=== PATIENT | female | born 1970 | race Caucasian/White ===

== ENCOUNTER 2017-03-17 00:39 | Inpatient (IN) | payer MEDICAID ==
[~2017-03-17] VITALS: Ht 154.9 cm; Wt 59.0 kg
[~2017-03-17 00:39] MED LIST: CEPH500C5 PO; CHLO25CA10 PO; FERR324T PO; FLUO20CA22 PO; FOLI1TAB16 PO; METR500T4 PO; OMEP40CA37 PO; ONDA8TAB9 PO; THI100T PO; TRAM50TA2 PO
[2017-03-17] MEDS ORDERED: piperacillin/tazo 3.375gm/50ml 50 ML IV ONE (01:25)
[2017-03-17] MEDS ORDERED: vancomycin/NS 1 GM ADD-VANTAGE 250 ML IV ONE (01:25)
[2017-03-17] MEDS ORDERED: normal saline 1000ML IV soln IV ONE (01:25)
[2017-03-17 02:03] LABS: BASOPHILS % (AUTO) 0.3 % (0-1); EOSINOPHILS # (AUTO) 0.1 X10'3 (0-0.9); EOSINOPHILS % (AUTO) 2.2 % (0-6); HEMATOCRIT 34.8 % (35.0-45.0); HEMOGLOBIN 11.1 g/dl (12.0-16.0); LYMPHOCYTES # (AUTO) 0.9 X10'3 (1.1-4.8); LYMPHOCYTES % (AUTO) 14.9 % (21-51); MEAN CORPUSCULAR VOLUME 81.3 FL (78-98); MEAN PLATELET VOLUME 5.6 FL (7.4-10.4); MONOCYTES # (AUTO) 0.1 X10'3 (0-0.9); MONOCYTES % (AUTO) 2.4 % (2-12); NEUTROPHILS # (AUTO) 4.8 X10'3 (1.8-7.7); NEUTROPHILS % (AUTO) 80.2 % (42-75); PLATELET COUNT 362 X10'3 (140-440); RED BLOOD COUNT 4.28 X10'6 (4.20-5.60); RED CELL DISTRIBUTION WIDTH 16.5 % (11.5-14.5)
[2017-03-17 02:06] LABS: PARTIAL THROMBOPLASTIN TIME 27 SECONDS (22-32)
[2017-03-17] MEDS ORDERED: NO HOME MEDS (02:10)
[2017-03-17 02:13] LABS: ALBUMIN 3.7 G/DL (3.4-5.0); ANION GAP 10 (8-16); BLOOD UREA NITROGEN 9 MG/DL (7-18); CALCIUM 9.1 MG/DL (8.5-10.1); CHLORIDE 99 MMOL/L (99-107); GLUCOSE 81 MG/DL (70-104); MAGNESIUM 2.2 MG/DL (1.5-2.4); POTASSIUM 3.6 MMOL/L (3.5-5.1); SODIUM 134 MMOL/L (135-145); TOTAL CARBON DIOXIDE 24.6 MMOL/L (24-32); eGFR 68 ML/MIN
[2017-03-17 02:27] LABS: ALANINE AMINOTRANSFERASE 21 U/L (12-78); ALBUMIN/GLOBULIN RATIO 0.6 (1.1-1.5); ALKALINE PHOSPHATASE 96 IU/L (46-116); ASPARTATE AMINO TRANSFERASE 24 U/L (10-37); BILIRUBIN,TOTAL 0.4 MG/DL (0.1-1.0); TOTAL PROTEIN 9.7 G/DL (6.4-8.2)
[2017-03-17] MEDS ORDERED: acetaminophen 325mg tablet PO ONE (02:35)
[2017-03-17] MEDS ORDERED: acetaminophen 325mg tablet PO PRN (03:15)
[2017-03-17] MEDS ORDERED: magnesium hydroxide 30ml (MOM) UD suspension PO PRN (03:15)
[2017-03-17] MEDS ORDERED: mag hydrox/Alum hydrox/simeth 30ml oral suspension PO PRN (03:15)
[2017-03-17] MEDS: HYDROcodone/acetaminophen 10/325mg tab PO PRN ×3 (03:49→13:41)
[2017-03-17 05:28] VITALS: BP 112/61
[2017-03-17 06:06] LABS: URINE HCG NEGATIVE (NEG)
[2017-03-17 06:12] LABS: CLARITY,URINE Clear (Clear); COLOR,URINE Yellow (Yellow); GLUCOSE, URINE 250 mg/dl (Neg); KETONES,URINE Negative (Neg); LEUKOCYTE ESTERASE ,URINE Negative (Neg); NITRITES, URINE Negative (Neg); OCCULT BLOOD,URINE Negative (Neg); PH,URINE 5.5 (4.8-8.0); PROTEIN,URINE Negative (Neg)
[2017-03-17 06:13] LABS: UA COLLECTION TYPE CLN CATCH MIDSTREAM
[2017-03-17] MEDS ORDERED: lactobacillus rhamnosus 10,000 MMU CELLS/CAPSULE PO SCH (07:30)
[2017-03-17] MEDS: piperacillin/tazo 3.375gm/50ml 50 ML IV SCH ×3 (08:00→23:29)
[2017-03-17] MEDS: heparin, porcine 5000 units/ml vial SQ SCH ×2 (08:01→20:47)
[2017-03-17] MEDS: LACTOBACILLUS RHAMNOSUS GG 15 billion unit sprinkle caps PO SCH (08:07)
[2017-03-17 11:00] VITALS: BP 101/49
[2017-03-17] MEDS: VANCOMYCIN 750MG IV in NS 250 ML IV SCH (13:40)
[2017-03-17] MEDS ORDERED: oxyCODONE/APAP 10/325mg tablet PO PRN (16:20)
[2017-03-17 18:00] VITALS: BP 107/51
[2017-03-17] MEDS: oxyCODONE/APAP 10/325mg tablet PO PRN ×2 (18:47→23:28)
[2017-03-17 22:00] VITALS: BP 99/58
[2017-03-18] MEDS: VANCOMYCIN 750MG IV in NS 250 ML IV SCH ×2 (02:10→13:28)
[2017-03-18] MEDS: ondansetron/PF 4mg/2ml inj IV PRN ×2 (04:25→11:23)
[2017-03-18 06:00] VITALS: BP 103/62
[2017-03-18 06:07] LABS: BASOPHILS % (AUTO) 0.3 % (0-1); EOSINOPHILS # (AUTO) 0.1 X10'3 (0-0.9); EOSINOPHILS % (AUTO) 2.9 % (0-6); HEMATOCRIT 25.5 % (35.0-45.0); LYMPHOCYTES # (AUTO) 0.7 X10'3 (1.1-4.8); LYMPHOCYTES % (AUTO) 17.4 % (21-51); MEAN CORPUSCULAR HEMOGLOBIN 25.8 PG (27.0-31.0); MEAN CORPUSCULAR HGB CONC 31.5 % (33.0-36.5); MEAN PLATELET VOLUME 5.7 FL (7.4-10.4); MONOCYTES # (AUTO) 0.3 X10'3 (0-0.9); MONOCYTES % (AUTO) 6.9 % (2-12); NEUTROPHILS % (AUTO) 72.5 % (42-75); PLATELET COUNT 242 X10'3 (140-440); RED BLOOD COUNT 3.11 X10'6 (4.20-5.60); RED CELL DISTRIBUTION WIDTH 16.2 % (11.5-14.5); WHITE BLOOD COUNT 4.1 X10'3 (4.5-11.0)
[2017-03-18 06:38] LABS: ALANINE AMINOTRANSFERASE 18 U/L (12-78); ALBUMIN 2.4 G/DL (3.4-5.0); ALBUMIN/GLOBULIN RATIO 0.6 (1.1-1.5); ALKALINE PHOSPHATASE 67 IU/L (46-116); ANION GAP 5 (8-16); ASPARTATE AMINO TRANSFERASE 21 U/L (10-37); BILIRUBIN,TOTAL 0.2 MG/DL (0.1-1.0); BLOOD UREA NITROGEN 9 MG/DL (7-18); C-REACTIVE PROTEIN 9.21 MG/DL (0.0-0.5); CALCIUM 7.9 MG/DL (8.5-10.1); CHLORIDE 107 MMOL/L (99-107); GLUCOSE 102 MG/DL (70-104); PHOSPHORUS 2.9 MG/DL (2.3-4.5); POTASSIUM 3.6 MMOL/L (3.5-5.1); SODIUM 139 MMOL/L (135-145); TOTAL CARBON DIOXIDE 26.8 MMOL/L (24-32); TOTAL PROTEIN 6.7 G/DL (6.4-8.2); eGFR > 90 ML/MIN
[2017-03-18] MEDS: piperacillin/tazo 3.375gm/50ml 50 ML IV SCH ×3 (09:03→23:49)
[2017-03-18] MEDS: heparin, porcine 5000 units/ml vial SQ SCH ×2 (09:04→20:22)
[2017-03-18] MEDS: oxyCODONE/APAP 10/325mg tablet PO PRN ×3 (09:39→23:51)
[2017-03-18 10:00] VITALS: BP 108/51
[2017-03-18] MEDS ORDERED: gadopentetate dimeglumine 7.5 MMOL/15 ML syringe ONE (11:34)
[2017-03-18 18:00] VITALS: BP 93/49
[2017-03-18 22:00] VITALS: BP 107/56
[2017-03-19] MEDS ORDERED: VANCOMYCIN LEVEL IV ONE (01:30)
[2017-03-19] MEDS: VANCOMYCIN 750MG IV in NS 250 ML IV SCH (02:16)
[2017-03-19 06:00] VITALS: BP 101/70
[2017-03-19] MEDS: LACTOBACILLUS RHAMNOSUS GG 15 billion unit sprinkle caps PO SCH (08:31)
[2017-03-19] MEDS: oxyCODONE/APAP 10/325mg tablet PO PRN (08:33)
[2017-03-19] MEDS: heparin, porcine 5000 units/ml vial SQ SCH (08:34)
[2017-03-19] MEDS: piperacillin/tazo 3.375gm/50ml 50 ML IV SCH (08:34)
[2017-03-19 09:56] LABS: BASOPHILS % (AUTO) 0.6 % (0-1); EOSINOPHILS # (AUTO) 0.1 X10'3 (0-0.9); EOSINOPHILS % (AUTO) 3.6 % (0-6); HEMATOCRIT 23.1 % (35.0-45.0); HEMOGLOBIN 7.8 g/dl (12.0-16.0); LYMPHOCYTES # (AUTO) 1.3 X10'3 (1.1-4.8); LYMPHOCYTES % (AUTO) 40.4 % (21-51); MEAN CORPUSCULAR HEMOGLOBIN 26.8 PG (27.0-31.0); MEAN CORPUSCULAR HGB CONC 33.7 % (33.0-36.5); MEAN CORPUSCULAR VOLUME 79.5 FL (78-98); MEAN PLATELET VOLUME 5.9 FL (7.4-10.4); MONOCYTES # (AUTO) 0.2 X10'3 (0-0.9); MONOCYTES % (AUTO) 6.5 % (2-12); NEUTROPHILS # (AUTO) 1.6 X10'3 (1.8-7.7); NEUTROPHILS % (AUTO) 48.9 % (42-75); PLATELET COUNT 294 X10'3 (140-440); RED BLOOD COUNT 2.91 X10'6 (4.20-5.60); RED CELL DISTRIBUTION WIDTH 15.3 % (11.5-14.5); WHITE BLOOD COUNT 3.2 X10'3 (4.5-11.0)
[2017-03-19 10:00] VITALS: BP 85/55
[2017-03-19] MEDS ORDERED: CLIN-5 PO (10:27)
[2017-03-19] MEDS ORDERED: TRAM50TA2 PO (10:27)
[2017-03-19] MEDS ORDERED: OMEP20CA10 PO (10:27)
[2017-03-19] MEDS ORDERED: FERR324T4 PO (11:18)
[2017-03-19] MEDS ORDERED: vancomycin/NS 1 GM ADD-VANTAGE 250 ML IV SCH (14:00)
[2017-03-21] MEDS ORDERED: VANCOMYCIN LEVEL IV ONE (01:30)
== END 2017-03-19 12:30 | disposition home or self-care (01) | DRG 383 ==
LOC: ER 00:40 → ED HOLD 03:14 → ORTHO 4S 05:20
PROVIDERS: ADMIT Internal Medicine; ATTEND Internal Medicine
DX: L03.114 Cellulitis of left upper limb (principal); K86.1 Other chronic pancreatitis; F19.10 Other psychoactive substance abuse, uncomplicated; Z60.2 Problems related to living alone; D64.9 Anemia, unspecified; Z79.899 Other long term (current) drug therapy; Z79.01 Long term (current) use of anticoagulants; Z79.82 Long term (current) use of aspirin; Z88.2 Allergy status to sulfonamides; Z88.6 Allergy status to analgesic agent; Z86.14 Personal history of Methicillin resistant Staphylococcus aureus infection; Z90.710 Acquired absence of both cervix and uterus; Z98.84 Bariatric surgery status; Z90.49 Acquired absence of other specified parts of digestive tract; Z98.891 History of uterine scar from previous surgery; Z56.0 Unemployment, unspecified
CPT/HCPCS: 36415; 71045; 73220; 80053; 80202; 81003; 81025; 83605; 83735; 84100; 84145; 84443; 85025; 85610; 85651; 85730; 86140; 87040; 87070; 93005; 96365; 96368; 99285; A9579; J1644; J2405; J2543; J3370; J7030

== ENCOUNTER 2017-04-16 00:15 | Emergency (ER) | payer MEDICAID ==
[~2017-04-16] VITALS: Ht 154.9 cm; Wt 60.6 kg
[~2017-04-16 00:15] MED LIST changes: -CEPH500C5 PO; -CHLO25CA10 PO; +CLIN-5 PO; -FERR324T PO; +FERR324T4 PO; -FLUO20CA22 PO; -FOLI1TAB16 PO; -METR500T4 PO; +OMEP20CA10 PO; -OMEP40CA37 PO; -ONDA8TAB9 PO; -THI100T PO
[2017-04-16] MEDS ORDERED: DOXY100C43 PO (00:28)
[2017-04-16] MEDS ORDERED: LIDOcaine 1.5% w/epinephrine 1:200,000 5ml ampul IJ ONE (00:30)
[2017-04-16 01:14] VITALS: BP 158/92
== END 2017-04-16 01:14 | disposition home or self-care (01) ==
LOC: ER 00:15
DX: R22.31 Localized swelling, mass and lump, right upper limb (principal); Z86.14 Personal history of Methicillin resistant Staphylococcus aureus infection; Z90.49 Acquired absence of other specified parts of digestive tract; Z90.710 Acquired absence of both cervix and uterus; F15.10 Other stimulant abuse, uncomplicated; Z88.6 Allergy status to analgesic agent; Z88.2 Allergy status to sulfonamides; Z79.899 Other long term (current) drug therapy; Z56.0 Unemployment, unspecified; Z60.2 Problems related to living alone
CPT/HCPCS: 10060; 99283; A6449; J3490

== ENCOUNTER 2017-05-25 10:41 | Emergency (ER) | payer MEDICAID ==
[~2017-05-25] VITALS: Ht 154.9 cm; Wt 60.0 kg
[~2017-05-25 10:41] MED LIST changes: -TRAM50TA2 PO
[2017-05-25 11:02] VITALS: BP 143/89
[2017-05-25] MEDS ORDERED: HYDR-565 PO (12:05)
[2017-05-25] MEDS ORDERED: DOXY100C43 PO (12:05)
== END 2017-05-25 12:21 | disposition home or self-care (01) ==
LOC: ER 10:41
DX: L02.01 Cutaneous abscess of face (principal); L02.512 Cutaneous abscess of left hand; Z90.710 Acquired absence of both cervix and uterus; Z90.49 Acquired absence of other specified parts of digestive tract; Z88.6 Allergy status to analgesic agent; Z88.2 Allergy status to sulfonamides; Z98.84 Bariatric surgery status; F15.10 Other stimulant abuse, uncomplicated; Z56.0 Unemployment, unspecified; Z60.2 Problems related to living alone; Z79.899 Other long term (current) drug therapy
CPT/HCPCS: 99283

== ENCOUNTER 2017-07-03 01:41 | Emergency (ER) | payer MEDICAID ==
[~2017-07-03] VITALS: Ht 154.9 cm; Wt 61.3 kg
[2017-07-03] MEDS ORDERED: cephalexin 500mg capsule PO ONE (02:15)
[2017-07-03] MEDS ORDERED: doxycycline hyclate 100mg tablet.DR PO ONE (02:15)
[2017-07-03] MEDS ORDERED: CEPH500C5 PO (02:21)
[2017-07-03] MEDS ORDERED: DOXY100C43 PO (02:21)
[2017-07-03 02:31] VITALS: BP 125/84
== END 2017-07-03 02:34 | disposition home or self-care (01) ==
LOC: ER 01:42
DX: L03.113 Cellulitis of right upper limb (principal); F15.10 Other stimulant abuse, uncomplicated; Z86.14 Personal history of Methicillin resistant Staphylococcus aureus infection; Z90.49 Acquired absence of other specified parts of digestive tract; Z90.710 Acquired absence of both cervix and uterus; Z88.6 Allergy status to analgesic agent; Z88.2 Allergy status to sulfonamides; Z79.899 Other long term (current) drug therapy; Z56.0 Unemployment, unspecified; Z60.2 Problems related to living alone
CPT/HCPCS: 99283

== ENCOUNTER 2017-07-03 23:49 | Inpatient (IN) | payer MEDICAID ==
[~2017-07-03] VITALS: Ht 154.9 cm; Wt 66.5 kg
[~2017-07-03 23:49] MED LIST changes: +CEPH500C5 PO; +DOXY100C43 PO
[2017-07-04] VITALS (24 sets, daily range): BP systolic 101–129; BP diastolic 52–78
[2017-07-04] MEDS ORDERED: normal saline 1000ML IV soln IV ONE (00:20)
[2017-07-04] MEDS ORDERED: CefTRIAXone 2gm/D5W 50ml 50 ML IV ONE (00:20)
[2017-07-04] MEDS ORDERED: vancomycin/NS 1 GM ADD-VANTAGE 250 ML IV ONE (00:20)
[2017-07-04 00:51] LABS: BASOPHILS % (AUTO) 0.1 % (0-1); EOSINOPHILS # (AUTO) 0.2 X10'3 (0-0.9); EOSINOPHILS % (AUTO) 2.5 % (0-6); HEMATOCRIT 23.2 % (35.0-45.0); HEMOGLOBIN 7.2 g/dl (12.0-16.0); LYMPHOCYTES # (AUTO) 0.8 X10'3 (1.1-4.8); MEAN CORPUSCULAR HEMOGLOBIN 21.6 PG (27.0-31.0); MEAN CORPUSCULAR HGB CONC 30.8 % (33.0-36.5); MEAN CORPUSCULAR VOLUME 70.3 FL (78-98); MEAN PLATELET VOLUME 5.8 FL (7.4-10.4); MONOCYTES # (AUTO) 0.4 X10'3 (0-0.9); MONOCYTES % (AUTO) 5.9 % (2-12); NEUTROPHILS # (AUTO) 5.3 X10'3 (1.8-7.7); NEUTROPHILS % (AUTO) 79.5 % (42-75); PLATELET COUNT 397 X10'3 (140-440); RED BLOOD COUNT 3.31 X10'6 (4.20-5.60); RED CELL DISTRIBUTION WIDTH 17.8 % (11.5-14.5); WHITE BLOOD COUNT 6.6 X10'3 (4.5-11.0)
[2017-07-04 01:05] LABS: PARTIAL THROMBOPLASTIN TIME 25 SECONDS (22-32); PROTHROMBIN TIME 10.2 SECONDS (9.0-12.0)
[2017-07-04 01:09] LABS: ALANINE AMINOTRANSFERASE 17 U/L (12-78); ALBUMIN 3.1 G/DL (3.4-5.0); ALBUMIN/GLOBULIN RATIO 0.7 (1.1-1.5); ALKALINE PHOSPHATASE 85 IU/L (46-116); ANION GAP 11 (8-16); ASPARTATE AMINO TRANSFERASE 20 U/L (10-37); BILIRUBIN,TOTAL 0.2 MG/DL (0.1-1.0); BLOOD UREA NITROGEN 13 MG/DL (7-18); BUN/CREATININE RATIO 12.9 (6.6-38.0); CALCIUM 8.4 MG/DL (8.5-10.1); CHLORIDE 102 MMOL/L (99-107); CREATININE 1.01 MG/DL (0.40-0.90); GLUCOSE 116 MG/DL (70-104); MAGNESIUM 1.9 MG/DL (1.5-2.4); POTASSIUM 3.6 MMOL/L (3.5-5.1); SODIUM 134 MMOL/L (135-145); TOTAL CARBON DIOXIDE 21.5 MMOL/L (24-32); TOTAL PROTEIN 7.6 G/DL (6.4-8.2); eGFR 59 ML/MIN
[2017-07-04] MEDS ORDERED: ketorolac trometh. 30mg/ml inj. IV ONE (01:20)
[2017-07-04] MEDS ORDERED: diphenhydrAMINE 25mg capsule PO PRN (02:50)
[2017-07-04] MEDS ORDERED: morphine 4 MG/ML inj SYRINge IV PRN ×4 (02:50→14:55)
[2017-07-04] MEDS ORDERED: acetaminophen 325mg tablet PO PRN ×2 (02:50)
[2017-07-04] MEDS ORDERED: HYDROcodone/acetaminophen 5mg/325mg tablet PO PRN (02:50)
[2017-07-04] MEDS ORDERED: magnesium hydroxide 30ml (MOM) UD suspension PO PRN (02:50)
[2017-07-04] MEDS ORDERED: HYDROmorphone inj. 0.5 MG/0.5 ML DISP.SYRIN IV PRN ×2 (02:50)
[2017-07-04] MEDS ORDERED: metoclopramide 5 mg/ml inj IV PRN (02:50)
[2017-07-04] MEDS ORDERED: mag hydrox/Alum hydrox/simeth 30ml oral suspension PO PRN (02:50)
[2017-07-04] MEDS ORDERED: ondansetron/PF 4mg/2ml inj IV PRN ×2 (02:50→14:55)
[2017-07-04] MEDS ORDERED: bisacodyl 10mg suppository rectal RC PRN (02:50)
[2017-07-04 03:35] LABS: PHOSPHORUS 2.7 MG/DL (2.3-4.5)
[2017-07-04 03:37] LABS: URINE HCG NEGATIVE (NEG)
[2017-07-04 03:44] LABS: CLARITY,URINE CLEAR (Clear); COLOR,URINE YELLOW (Yellow); GLUCOSE, URINE NEGATIVE (Neg); KETONES,URINE NEGATIVE (Neg); LEUKOCYTE ESTERASE ,URINE NEGATIVE (Neg); NITRITES, URINE NEGATIVE (Neg); OCCULT BLOOD,URINE NEGATIVE (Neg); PH,URINE 5.5 (4.8-8.0); PROTEIN,URINE NEGATIVE (Neg); UROBILINOGEN,URINE 0.2 E.U/dL (0.2-1.0)
[2017-07-04] MEDS: normal saline 1000ml 1,000 ML IV SCH ×2 (03:44→04:59)
[2017-07-04] MEDS: piperacillin/tazo 4.5gm/100ml 100 ML IV SCH ×2 (03:44→08:03)
[2017-07-04 03:49] LABS: UA COLLECTION TYPE CLN CATCH MIDSTREAM; URINE AMPHETAMINE SCREEN POSITIVE (Neg); URINE BARBITUATE SCREEN NEGATIVE (Neg); URINE BENZODIAZEPINES SCREEN NEGATIVE (Neg); URINE CANNABINOID SCREEN NEGATIVE (Neg); URINE COCAINE SCREEN NEGATIVE (Neg); URINE METHADONE SCREEN NEGATIVE (Neg); URINE OPIATE SCREEN NEGATIVE (Neg); URINE PHENCYCLIDINE SCREEN NEGATIVE (Neg)
[2017-07-04] MEDS ORDERED: diphenhydrAMINE 25mg capsule PO ONE (06:05)
[2017-07-04] MEDS ORDERED: acetaminophen 325mg tablet PO ONE (06:05)
[2017-07-04] MEDS ORDERED: dexamethasone inj 10 MG in normal saline 100ml IV soln 100 ML IV ONE (06:05)
[2017-07-04] MEDS ORDERED: diphenhydrAMINE 50 mg/ml inj IV ONE (06:05)
[2017-07-04] MEDS ORDERED: vancomycin/NS 1 GM ADD-VANTAGE 250 ML IV SCH (08:00)
[2017-07-04] MEDS ORDERED: clindamycin phosphate inj 300 MG in dextrose 5%-water 50ml 48 ML IV SCH (08:00)
[2017-07-04] MEDS: loratadine 10mg tablet PO SCH (08:02)
[2017-07-04] MEDS: lactobacillus rhamnosus 10,000 MMU CELLS/CAPSULE PO SCH ×2 (08:02→19:05)
[2017-07-04] MEDS: docusate sod 100mg capsule PO SCH ×2 (08:02→19:05)
[2017-07-04] MEDS: pantoprazole 40mg Tablet.DR PO SCH (08:03)
[2017-07-04] MEDS: ferrous sulfate 325mg tablet PO SCH ×2 (08:03→17:17)
[2017-07-04] MEDS ORDERED: MORPHINE 2MG in 2ml NS syringe IV PRN (09:23)
[2017-07-04] MEDS: MORPHINE 2MG in 2ml NS syringe IV PRN (09:32)
[2017-07-04] MEDS ORDERED: midazolam 2 mg/2 ml injection ONE (13:56)
[2017-07-04] MEDS ORDERED: fentaNYL /PF 50mcg/ml 5ml ampule ONE (13:57)
[2017-07-04] MEDS ORDERED: propofol inj 20 ML IV ONE (13:57)
[2017-07-04] MEDS ORDERED: LIDOcaine 2% (20mg/ml) 5ml vial ONE (13:57)
[2017-07-04] MEDS ORDERED: succinylcholine 20mg/ml inj IV ONE (13:57)
[2017-07-04] MEDS ORDERED: sevoflurane 250ml liquid IH ONE (14:00)
[2017-07-04] MEDS ORDERED: ceFAZolin 1000mg inj ONE (14:20)
[2017-07-04] MEDS ORDERED: ringers solution, lacted 1,000 ML IV SCH (14:54)
[2017-07-04] MEDS ORDERED: meperidine/PF 50mg/ml syringe IV PRN ×3 (14:55)
[2017-07-04] MEDS ORDERED: proCHLORperazine 10 MG/2 ml inj IV PRN (14:55)
[2017-07-04] MEDS ORDERED: ondansetron/PF 4mg/2ml inj ONE (15:00)
[2017-07-04] MEDS: vancomycin/NS 1 GM ADD-VANTAGE 250 ML IV SCH (15:42)
[2017-07-04] MEDS: HYDROcodone/acetaminophen 10/325mg tab PO PRN (19:07)
[2017-07-04] MEDS ORDERED: temazepam 15mg capsule PO PRN (21:00)
[2017-07-05] MEDS: vancomycin/NS 1 GM ADD-VANTAGE 250 ML IV SCH ×2 (00:36→13:33)
[2017-07-05] MEDS: HYDROcodone/acetaminophen 10/325mg tab PO PRN ×4 (00:41→18:52)
[2017-07-05 02:00] VITALS: BP 106/62
[2017-07-05] MEDS: normal saline 1000ml 1,000 ML IV SCH ×3 (02:28→21:32)
[2017-07-05 06:00] VITALS: BP 101/57
[2017-07-05 06:27] LABS: BASOPHILS % (AUTO) 0.7 % (0-1); EOSINOPHILS # (AUTO) 0.1 X10'3 (0-0.9); EOSINOPHILS % (AUTO) 3.4 % (0-6); HEMATOCRIT 28.3 % (35.0-45.0); HEMOGLOBIN 8.8 g/dl (12.0-16.0); LYMPHOCYTES # (AUTO) 1.1 X10'3 (1.1-4.8); LYMPHOCYTES % (AUTO) 32.1 % (21-51); MEAN CORPUSCULAR HEMOGLOBIN 23.5 PG (27.0-31.0); MEAN CORPUSCULAR VOLUME 75.7 FL (78-98); MEAN PLATELET VOLUME 6.1 FL (7.4-10.4); MONOCYTES # (AUTO) 0.2 X10'3 (0-0.9); NEUTROPHILS # (AUTO) 1.9 X10'3 (1.8-7.7); NEUTROPHILS % (AUTO) 56.8 % (42-75); PLATELET COUNT 292 X10'3 (140-440); RED BLOOD COUNT 3.73 X10'6 (4.20-5.60); RED CELL DISTRIBUTION WIDTH 19.5 % (11.5-14.5); WHITE BLOOD COUNT 3.4 X10'3 (4.5-11.0)
[2017-07-05 06:57] LABS: ALANINE AMINOTRANSFERASE 19 U/L (12-78); ALBUMIN 2.5 G/DL (3.4-5.0); ALBUMIN/GLOBULIN RATIO 0.6 (1.1-1.5); ALKALINE PHOSPHATASE 81 IU/L (46-116); ANION GAP 7 (8-16); ASPARTATE AMINO TRANSFERASE 22 U/L (10-37); BILIRUBIN,TOTAL 0.3 MG/DL (0.1-1.0); BLOOD UREA NITROGEN 8 MG/DL (7-18); CALCIUM 7.9 MG/DL (8.5-10.1); CHLORIDE 109 MMOL/L (99-107); CREATININE 0.73 MG/DL (0.40-0.90); GLUCOSE 82 MG/DL (70-104); POTASSIUM 4.3 MMOL/L (3.5-5.1); SODIUM 140 MMOL/L (135-145); TOTAL CARBON DIOXIDE 23.7 MMOL/L (24-32); TOTAL PROTEIN 6.4 G/DL (6.4-8.2); eGFR 86 ML/MIN
[2017-07-05] MEDS: lactobacillus rhamnosus 10,000 MMU CELLS/CAPSULE PO SCH ×2 (07:48→21:31)
[2017-07-05] MEDS: docusate sod 100mg capsule PO SCH ×2 (07:48→21:31)
[2017-07-05] MEDS: pantoprazole 40mg Tablet.DR PO SCH (07:48)
[2017-07-05] MEDS: loratadine 10mg tablet PO SCH (07:48)
[2017-07-05] MEDS: ferrous sulfate 325mg tablet PO SCH ×2 (07:49→17:54)
[2017-07-05] MEDS: CefTRIAXone/D5W-Rocephin 1gm 50 ML IV SCH (07:49)
[2017-07-05] MEDS ORDERED: SERT50TA10 (08:48)
[2017-07-05] MEDS ORDERED: sertraline 50mg tablet PO SCH (10:25)
[2017-07-05] MEDS ORDERED: VANCOMYCIN LEVEL IV NR (12:30)
[2017-07-05] MEDS: MORPHINE 2MG in 2ml NS syringe IV PRN ×2 (13:33→21:32)
[2017-07-05 18:30] VITALS: BP 112/77
[2017-07-05 22:00] VITALS: BP 115/73
[2017-07-06] MEDS: vancomycin/NS 1 GM ADD-VANTAGE 250 ML IV SCH ×3 (00:18→22:04)
[2017-07-06] MEDS: HYDROcodone/acetaminophen 10/325mg tab PO PRN ×5 (00:18→23:50)
[2017-07-06] MEDS: normal saline 1000ml 1,000 ML IV SCH ×2 (04:48→19:39)
[2017-07-06 05:55] LABS: BASOPHILS % (AUTO) 0.7 % (0-1); EOSINOPHILS # (AUTO) 0.1 X10'3 (0-0.9); EOSINOPHILS % (AUTO) 3.4 % (0-6); HEMOGLOBIN 8.1 g/dl (12.0-16.0); LYMPHOCYTES # (AUTO) 1.1 X10'3 (1.1-4.8); LYMPHOCYTES % (AUTO) 34.3 % (21-51); MEAN CORPUSCULAR HEMOGLOBIN 23.3 PG (27.0-31.0); MEAN CORPUSCULAR VOLUME 75.3 FL (78-98); MONOCYTES # (AUTO) 0.2 X10'3 (0-0.9); MONOCYTES % (AUTO) 6.2 % (2-12); NEUTROPHILS # (AUTO) 1.8 X10'3 (1.8-7.7); NEUTROPHILS % (AUTO) 55.4 % (42-75); PLATELET COUNT 297 X10'3 (140-440); RED BLOOD COUNT 3.45 X10'6 (4.20-5.60); RED CELL DISTRIBUTION WIDTH 19.2 % (11.5-14.5); WHITE BLOOD COUNT 3.3 X10'3 (4.5-11.0)
[2017-07-06 06:00] VITALS: BP 123/77
[2017-07-06 06:26] LABS: ALBUMIN 2.2 G/DL (3.4-5.0); ANION GAP 8 (8-16); BILIRUBIN,TOTAL 0.3 MG/DL (0.1-1.0); BLOOD UREA NITROGEN 6 MG/DL (7-18); CALCIUM 7.7 MG/DL (8.5-10.1); CHLORIDE 108 MMOL/L (99-107); CREATININE 0.67 MG/DL (0.40-0.90); GLUCOSE 99 MG/DL (70-104); POTASSIUM 3.9 MMOL/L (3.5-5.1); SODIUM 140 MMOL/L (135-145); TOTAL CARBON DIOXIDE 24.3 MMOL/L (24-32); eGFR > 90 ML/MIN
[2017-07-06 06:27] LABS: ALANINE AMINOTRANSFERASE 15 U/L (12-78); ALBUMIN/GLOBULIN RATIO 0.6 (1.1-1.5); ALKALINE PHOSPHATASE 72 IU/L (46-116); ASPARTATE AMINO TRANSFERASE 21 U/L (10-37)
[2017-07-06] MEDS: pantoprazole 40mg Tablet.DR PO SCH (07:27)
[2017-07-06] MEDS: ferrous sulfate 325mg tablet PO SCH ×2 (07:27→19:38)
[2017-07-06] MEDS: lactobacillus rhamnosus 10,000 MMU CELLS/CAPSULE PO SCH ×2 (07:27→19:38)
[2017-07-06] MEDS: docusate sod 100mg capsule PO SCH ×2 (07:27→19:38)
[2017-07-06] MEDS: loratadine 10mg tablet PO SCH (07:27)
[2017-07-06] MEDS: CefTRIAXone/D5W-Rocephin 1gm 50 ML IV SCH (07:28)
[2017-07-06] MEDS: sertraline 50mg tablet PO SCH (07:28)
[2017-07-06 10:00] VITALS: BP 122/82
[2017-07-06 11:35] VITALS: BP 126/63
[2017-07-06] MEDS ORDERED: VANCOMYCIN LEVEL IV NR (12:30)
[2017-07-06] MEDS: MORPHINE 2MG in 2ml NS syringe IV PRN (13:17)
[2017-07-06 17:00] VITALS: BP 147/82
[2017-07-06 22:00] VITALS: BP 122/81
[2017-07-07] MEDS: normal saline 1000ml 1,000 ML IV SCH ×2 (00:18→08:52)
[2017-07-07 02:17] LABS: BASOPHILS % (AUTO) 1.2 % (0-1); EOSINOPHILS # (AUTO) 0.1 X10'3 (0-0.9); EOSINOPHILS % (AUTO) 2.8 % (0-6); HEMATOCRIT 28.8 % (35.0-45.0); HEMOGLOBIN 8.9 g/dl (12.0-16.0); LYMPHOCYTES # (AUTO) 1.3 X10'3 (1.1-4.8); LYMPHOCYTES % (AUTO) 36.4 % (21-51); MEAN CORPUSCULAR HEMOGLOBIN 23.3 PG (27.0-31.0); MEAN PLATELET VOLUME 5.7 FL (7.4-10.4); MONOCYTES # (AUTO) 0.2 X10'3 (0-0.9); MONOCYTES % (AUTO) 6.3 % (2-12); NEUTROPHILS % (AUTO) 53.3 % (42-75); PLATELET COUNT 351 X10'3 (140-440); RED BLOOD COUNT 3.84 X10'6 (4.20-5.60); RED CELL DISTRIBUTION WIDTH 18.9 % (11.5-14.5); WHITE BLOOD COUNT 3.6 X10'3 (4.5-11.0)
[2017-07-07 02:45] LABS: ANISOCYTOSIS 2+; HYPOCHROMASIA 1+; MICROCYTOSIS 1+; POLYCHROMASIA 1+; SPHEROCYTES 1+
[2017-07-07 04:31] LABS: ALANINE AMINOTRANSFERASE 17 U/L (12-78); ALBUMIN 2.4 G/DL (3.4-5.0); ALBUMIN/GLOBULIN RATIO 0.6 (1.1-1.5); ALKALINE PHOSPHATASE 76 IU/L (46-116); ANION GAP 8 (8-16); ASPARTATE AMINO TRANSFERASE 18 U/L (10-37); BILIRUBIN,TOTAL 0.2 MG/DL (0.1-1.0); BLOOD UREA NITROGEN 6 MG/DL (7-18); CALCIUM 7.9 MG/DL (8.5-10.1); CHLORIDE 109 MMOL/L (99-107); CREATININE 0.67 MG/DL (0.40-0.90); GLUCOSE 93 MG/DL (70-104); SODIUM 141 MMOL/L (135-145); TOTAL CARBON DIOXIDE 23.7 MMOL/L (24-32); TOTAL PROTEIN 6.4 G/DL (6.4-8.2); eGFR > 90 ML/MIN
[2017-07-07 04:38] LABS: TROPONIN I < 0.04 NG/ML (0.0-0.05)
[2017-07-07 04:53] LABS: PLATELET ESTIMATE NORMAL
[2017-07-07 05:00] VITALS: BP 128/72
[2017-07-07] MEDS: HYDROcodone/acetaminophen 10/325mg tab PO PRN (05:24)
[2017-07-07] MEDS: vancomycin/NS 1 GM ADD-VANTAGE 250 ML IV SCH (05:25)
[2017-07-07] MEDS: ferrous sulfate 325mg tablet PO SCH (07:30)
[2017-07-07] MEDS: pantoprazole 40mg Tablet.DR PO SCH (07:30)
[2017-07-07] MEDS ORDERED: aspirin 325mg tablet PO SCH (08:30)
[2017-07-07] MEDS: loratadine 10mg tablet PO SCH (08:46)
[2017-07-07] MEDS: CefTRIAXone/D5W-Rocephin 1gm 50 ML IV SCH (08:46)
[2017-07-07] MEDS: docusate sod 100mg capsule PO SCH (08:46)
[2017-07-07] MEDS: lactobacillus rhamnosus 10,000 MMU CELLS/CAPSULE PO SCH (08:47)
[2017-07-07] MEDS: sertraline 50mg tablet PO SCH (08:47)
[2017-07-07 10:00] VITALS: BP 149/82
[2017-07-07] MEDS ORDERED: HYDR-3972 PO (10:31)
[2017-07-07] MEDS ORDERED: clindamycin PO (10:50)
[2017-07-07] MEDS ORDERED: VANCOMYCIN LEVEL IV NR (13:30)
== END 2017-07-07 15:00 | disposition home or self-care (01) | DRG 364 ==
LOC: ER 23:50 → ED HOLD 07-04 02:48 → ORTHO 4S 07-04 04:37 → PAS IN 07-04 13:36 → ORTHO 4S 07-04 16:31
PROVIDERS: ADMIT Family Medicine; ATTEND Internal Medicine
PROC: 30233N1 Transfusion of Nonautologous Red Blood Cells into Peripheral Vein, Percutaneous Approach (ICD-10-PCS; 2017-07-04)
PROC: 0KB70ZZ Excision of Right Upper Arm Muscle, Open Approach (ICD-10-PCS; principal; 2017-07-04 14:00)
DX: L03.113 Cellulitis of right upper limb (principal); R65.10 Systemic inflammatory response syndrome (SIRS) of non-infectious origin without acute organ dysfunction; K72.90 Hepatic failure, unspecified without coma; E86.0 Dehydration; L02.413 Cutaneous abscess of right upper limb; D63.8 Anemia in other chronic diseases classified elsewhere; F19.10 Other psychoactive substance abuse, uncomplicated; E44.1 Mild protein-calorie malnutrition; F15.129 Other stimulant abuse with intoxication, unspecified; F32.9 Major depressive disorder, single episode, unspecified; Z79.899 Other long term (current) drug therapy; Z90.710 Acquired absence of both cervix and uterus; Z91.19 Patient's noncompliance with other medical treatment and regimen; Z98.84 Bariatric surgery status; Z68.27 Body mass index [BMI] 27.0-27.9, adult; Z88.5 Allergy status to narcotic agent; Z88.2 Allergy status to sulfonamides; Z90.49 Acquired absence of other specified parts of digestive tract; Z71.51 Drug abuse counseling and surveillance of drug abuser
CPT/HCPCS: 36415; 71045; 73200; 80053; 80202; 80305; 81003; 81025; 83605; 83735; 83880; 84100; 84145; 84443; 84484; 85025; 85610; 85730; 86885; 86900; 86901; 86920; 87040; 87070; 87075; 93005; 93306; 96365; 96366; 96368; 96375; 99285; A6212; A6213; A6266; A6446; A6449; A7000; J0330; J0690; J0696; J1100; J1200; J1885; J2001; J2250; J2270; J2274; J2405; J2543; J2704; J3010; J3370; J3490; J7030; J7060; J7120; P9016; Q0163

== ENCOUNTER 2017-07-13 09:00 | Day surgery (SDC) | payer MEDICAID ==
[~2017-07-13 09:00] MED LIST changes: -CEPH500C5 PO; -CLIN-5 PO; -DOXY100C43 PO; +HYDR-3972 PO; +SERT50TA10; +clindamycin PO
[2017-07-13] MEDS ORDERED: ZOL50T PO (09:35)
[2017-07-13] MEDS ORDERED: LIDOcaine 2% 5ml jelly ONE (10:03)
== END 2017-07-13 10:34 | disposition home or self-care (01) ==
LOC: WOUND CARE 09:00
PROVIDERS: ATTEND Surgery
DX: L98.492 Non-pressure chronic ulcer of skin of other sites with fat layer exposed (principal); L02.415 Cutaneous abscess of right lower limb; E44.0 Moderate protein-calorie malnutrition; F32.9 Major depressive disorder, single episode, unspecified; Z90.710 Acquired absence of both cervix and uterus
CPT/HCPCS: 97597; A6021; A6212

== ENCOUNTER 2017-09-20 21:30 | Emergency (ER) | payer MEDICAID ==
[~2017-09-20] VITALS: Ht 154.9 cm; Wt 61.3 kg
[~2017-09-20 21:30] MED LIST changes: -FERR324T4 PO; -HYDR-3972 PO; -OMEP20CA10 PO; -clindamycin PO
[2017-09-20] MEDS ORDERED: LIDOcaine 1.5% w/epinephrine 1:200,000 5ml ampul IJ ONE (22:35)
[2017-09-20 23:23] VITALS: BP 153/92
== END 2017-09-20 23:24 | disposition home or self-care (01) ==
LOC: ER 21:31
DX: S81.811A Laceration without foreign body, right lower leg, initial encounter (principal); F15.90 Other stimulant use, unspecified, uncomplicated; Z86.14 Personal history of Methicillin resistant Staphylococcus aureus infection; Z90.49 Acquired absence of other specified parts of digestive tract; Z90.710 Acquired absence of both cervix and uterus; Z98.84 Bariatric surgery status; Z60.2 Problems related to living alone; Z56.0 Unemployment, unspecified; Z88.6 Allergy status to analgesic agent; Z88.2 Allergy status to sulfonamides; Z79.899 Other long term (current) drug therapy; V29.9XXA Motorcycle rider (driver) (passenger) injured in unspecified traffic accident, initial encounter; Y93.89 Activity, other specified; Y92.89 Other specified places as the place of occurrence of the external cause; Y99.8 Other external cause status
CPT/HCPCS: 12001; 99283; A6449; J3490

== ENCOUNTER 2017-10-22 16:20 | Emergency (ER) | payer MEDICAID ==
[~2017-10-22] VITALS: Ht 154.9 cm; Wt 59.0 kg
[2017-10-22 17:37] LABS: BASOPHILS % (AUTO) 0.9 % (0-1); EOSINOPHILS % (AUTO) 0.3 % (0-6); HEMATOCRIT 28.3 % (35.0-45.0); HEMOGLOBIN 9.3 g/dl (12.0-16.0); LYMPHOCYTES # (AUTO) 0.4 X10'3 (1.1-4.8); MEAN CORPUSCULAR HEMOGLOBIN 27.4 PG (27.0-31.0); MEAN CORPUSCULAR HGB CONC 32.9 % (33.0-36.5); MEAN CORPUSCULAR VOLUME 83.3 FL (78-98); MEAN PLATELET VOLUME 5.7 FL (7.4-10.4); MONOCYTES # (AUTO) 0.2 X10'3 (0-0.9); MONOCYTES % (AUTO) 13.7 % (2-12); NEUTROPHILS # (AUTO) 0.7 X10'3 (1.8-7.7); NEUTROPHILS % (AUTO) 54.1 % (42-75); PLATELET COUNT 169 X10'3 (140-440); RED BLOOD COUNT 3.39 X10'6 (4.20-5.60); RED CELL DISTRIBUTION WIDTH 17.3 % (11.5-14.5); WHITE BLOOD COUNT 1.2 X10'3 (4.5-11.0)
[2017-10-22 17:48] LABS: INR 1.1 INR; PARTIAL THROMBOPLASTIN TIME 24 SECONDS (22-32); PROTHROMBIN TIME 11.4 SECONDS (9.0-12.0)
[2017-10-22 17:54] LABS: ALANINE AMINOTRANSFERASE 30 U/L (12-78); ALBUMIN 2.8 G/DL (3.4-5.0); ALBUMIN/GLOBULIN RATIO 0.7 (1.1-1.5); ALKALINE PHOSPHATASE 61 IU/L (46-116); ANION GAP 11 (8-16); ASPARTATE AMINO TRANSFERASE 34 U/L (10-37); BILIRUBIN,TOTAL 0.3 MG/DL (0.1-1.0); BLOOD UREA NITROGEN 6 MG/DL (7-18); BUN/CREATININE RATIO 6.4 (6.6-38.0); CALCIUM 8.2 MG/DL (8.5-10.1); CHLORIDE 102 MMOL/L (99-107); CREATININE 0.94 MG/DL (0.40-0.90); GLUCOSE 127 MG/DL (70-104); POTASSIUM 3.3 MMOL/L (3.5-5.1); SODIUM 137 MMOL/L (135-145); TOTAL PROTEIN 6.8 G/DL (6.4-8.2); eGFR 64 ML/MIN
[2017-10-22] MEDS ORDERED: ondansetron/PF 4mg/2ml inj IV ONE (19:15)
[2017-10-22 19:54] LABS: URINE HCG NEGATIVE (NEG)
[2017-10-22 19:57] LABS: COLOR,URINE YELLOW (Yellow); GLUCOSE, URINE NEGATIVE (Neg); KETONES,URINE TRACE mg/dl (Neg); LEUKOCYTE ESTERASE ,URINE NEGATIVE (Neg); NITRITES, URINE POSITIVE (Neg); OCCULT BLOOD,URINE TRACE-INTACT (Neg); PROTEIN,URINE TRACE mg/dl (Neg); UROBILINOGEN,URINE 0.2 E.U/dL (0.2-1.0)
[2017-10-22 19:59] LABS: MAGNESIUM 1.6 MG/DL (1.5-2.4)
[2017-10-22 20:01] LABS: CLARITY,URINE SLIGHTLY CLOUDY (Clear); UA COLLECTION TYPE VOIDED
[2017-10-22 20:02] LABS: BACTERIA,URINE 4+ /HPF (Neg); RBC,URINE 0-2 /HPF (0-2); SQUAMOUS EPITHELIAL CELL,UR FEW /LPF (FEW)
[2017-10-22 20:48] LABS: BASOPHILS % (AUTO) 0.8 % (0-1); HEMATOCRIT 31.3 % (35.0-45.0); HEMOGLOBIN 10.2 g/dl (12.0-16.0); LYMPHOCYTES # (AUTO) 0.5 X10'3 (1.1-4.8); MEAN CORPUSCULAR HEMOGLOBIN 27.2 PG (27.0-31.0); MEAN CORPUSCULAR HGB CONC 32.6 % (33.0-36.5); MEAN CORPUSCULAR VOLUME 83.6 FL (78-98); MEAN PLATELET VOLUME 5.7 FL (7.4-10.4); MONOCYTES # (AUTO) 0.2 X10'3 (0-0.9); MONOCYTES % (AUTO) 16.8 % (2-12); NEUTROPHILS # (AUTO) 0.6 X10'3 (1.8-7.7); NEUTROPHILS % (AUTO) 43.4 % (42-75); PLATELET COUNT 187 X10'3 (140-440); RED BLOOD COUNT 3.74 X10'6 (4.20-5.60); RED CELL DISTRIBUTION WIDTH 17.2 % (11.5-14.5); WHITE BLOOD COUNT 1.4 X10'3 (4.5-11.0)
[2017-10-22 21:07] LABS: PLATELET ESTIMATE NORMAL; TOTAL CELLS COUNTED 100
[2017-10-22 21:08] LABS: ANISOCYTOSIS 1+
[2017-10-22 21:09] LABS: POLYCHROMASIA FEW; TEAR DROP CELLS FEW
[2017-10-22] MEDS ORDERED: acetaminophen w/codeine (30MG) #3 tablet PO ONE (21:35)
[2017-10-22] MEDS ORDERED: CefTRIAXone 2gm/D5W 50ml 50 ML IV ONE (23:00)
[2017-10-22] MEDS ORDERED: CEPH500C5 PO (23:01)
[2017-10-23 00:57] VITALS: BP 122/63
== END 2017-10-23 01:01 | disposition home or self-care (01) ==
LOC: ER 16:21
DX: N39.0 Urinary tract infection, site not specified (principal); R42 Dizziness and giddiness; R07.9 Chest pain, unspecified; Z86.14 Personal history of Methicillin resistant Staphylococcus aureus infection; F15.90 Other stimulant use, unspecified, uncomplicated; Z88.6 Allergy status to analgesic agent; Z88.2 Allergy status to sulfonamides; Z79.2 Long term (current) use of antibiotics; Z79.899 Other long term (current) drug therapy; Z60.2 Problems related to living alone; Z56.0 Unemployment, unspecified
CPT/HCPCS: 36415; 71045; 80053; 81001; 81025; 83605; 83735; 84145; 84484; 85025; 85610; 85730; 87040; 87077; 87088; 87186; 93005; 96365; 96375; 99285; J0696; J2405

== ENCOUNTER 2017-12-31 15:02 | Emergency (ER) | payer MEDICAID ==
[~2017-12-31] VITALS: Ht 154.9 cm; Wt 56.0 kg
[~2017-12-31 15:02] MED LIST changes: +CEPH-571 PO; +CEPH500C5 PO
[2017-12-31 15:21] VITALS: BP 138/74
[2017-12-31] MEDS ORDERED: CLIN150C2 PO (15:47)
== END 2017-12-31 15:55 | disposition home or self-care (01) ==
LOC: ER 15:03
DX: H60.02 Abscess of left external ear (principal); I80.8 Phlebitis and thrombophlebitis of other sites; F15.10 Other stimulant abuse, uncomplicated; F32.9 Major depressive disorder, single episode, unspecified; Z56.0 Unemployment, unspecified; Z90.49 Acquired absence of other specified parts of digestive tract; Z90.710 Acquired absence of both cervix and uterus; Z86.14 Personal history of Methicillin resistant Staphylococcus aureus infection; Z88.6 Allergy status to analgesic agent
CPT/HCPCS: 99283

== ENCOUNTER 2018-02-06 18:41 | Inpatient (IN) | payer MEDICAID ==
[~2018-02-06] VITALS: Ht 154.9 cm; Wt 60.0 kg
[2018-02-06] MEDS ORDERED: vancomycin/NS 1 GM ADD-VANTAGE 250 ML IV ONE (19:55)
[2018-02-06] MEDS ORDERED: piperacillin/tazo 3.375gm/50ml 50 ML IV ONE (19:55)
[2018-02-06] MEDS ORDERED: iohexol 300mg/ml 100ml inj. ONE (20:01)
[2018-02-06 22:14] LABS: BASOPHILS % (AUTO) 0.3 % (0-1); EOSINOPHILS # (AUTO) 0.1 X10'3 (0-0.9); EOSINOPHILS % (AUTO) 1.7 % (0-6); LYMPHOCYTES % (AUTO) 25.7 % (21-51); MEAN CORPUSCULAR HEMOGLOBIN 23.4 PG (27.0-31.0); MEAN CORPUSCULAR HGB CONC 30.8 % (33.0-36.5); MEAN CORPUSCULAR VOLUME 75.8 FL (78-98); MEAN PLATELET VOLUME 6.3 FL (7.4-10.4); MONOCYTES # (AUTO) 0.3 X10'3 (0-0.9); MONOCYTES % (AUTO) 7.4 % (2-12); NEUTROPHILS # (AUTO) 2.4 X10'3 (1.8-7.7); NEUTROPHILS % (AUTO) 64.9 % (42-75); PLATELET COUNT 309 X10'3 (140-440); RED BLOOD COUNT 2.84 X10'6 (4.20-5.60); WHITE BLOOD COUNT 3.8 X10'3 (4.5-11.0)
[2018-02-06] MEDS ORDERED: normal saline 1000ML IV soln IV ONE ×2 (22:25→22:35)
[2018-02-06 22:28] LABS: HEMATOCRIT 21.5 % (35.0-45.0); HEMOGLOBIN 6.6 g/dl (12.0-16.0)
[2018-02-06 22:42] LABS: ALANINE AMINOTRANSFERASE 17 U/L (12-78); ALBUMIN 3.1 G/DL (3.4-5.0); ALBUMIN/GLOBULIN RATIO 0.8 (1.1-1.5); ALKALINE PHOSPHATASE 54 IU/L (46-116); ANION GAP 8 (8-16); ASPARTATE AMINO TRANSFERASE 16 U/L (10-37); BILIRUBIN,TOTAL 0.1 MG/DL (0.1-1.0); BLOOD UREA NITROGEN 17 MG/DL (7-18); BUN/CREATININE RATIO 21.3 (6.6-38.0); CALCIUM 8.3 MG/DL (8.5-10.1); CHLORIDE 104 MMOL/L (99-107); GLUCOSE 90 MG/DL (70-104); POTASSIUM 3.7 MMOL/L (3.5-5.1); SODIUM 138 MMOL/L (135-145); TOTAL CARBON DIOXIDE 26.4 MMOL/L (24-32); TOTAL PROTEIN 7.1 G/DL (6.4-8.2); eGFR 78 ML/MIN
[2018-02-07] VITALS (8 sets, daily range): BP systolic 105–142; BP diastolic 45–74
[2018-02-07] MEDS ORDERED: diphenhydrAMINE 50 mg/ml inj IV PRN (00:05)
[2018-02-07] MEDS ORDERED: mag hydrox/Alum hydrox/simeth 30ml oral suspension PO PRN (00:05)
[2018-02-07] MEDS ORDERED: ondansetron/PF 4mg/2ml inj IV PRN (00:05)
[2018-02-07] MEDS ORDERED: acetaminophen 325mg tablet PO PRN ×2 (00:05)
[2018-02-07] MEDS ORDERED: acetaminophen 650mg rectal suppository RC PRN (00:05)
[2018-02-07] MEDS ORDERED: bisacodyl 10mg suppository rectal RC PRN (00:05)
[2018-02-07] MEDS ORDERED: HYDROmorphone 1 mg/ml syringe IV PRN (00:05)
[2018-02-07] MEDS ORDERED: metoclopramide 5 mg/ml inj IV PRN (00:05)
[2018-02-07] MEDS ORDERED: magnesium hydroxide 30ml (MOM) UD suspension PO PRN (00:05)
[2018-02-07] MEDS: normal saline 1000ml 1,000 ML IV SCH ×3 (00:56→23:00)
[2018-02-07 01:37] LABS: MAGNESIUM 1.8 MG/DL (1.5-2.4); PHOSPHORUS 3.2 MG/DL (2.3-4.5)
[2018-02-07] MEDS: piperacillin/tazo 3.375gm/50ml 50 ML IV SCH ×4 (02:03→20:12)
[2018-02-07] MEDS: HYDROcodone/acetaminophen 10/325mg tab PO PRN ×3 (03:42→17:51)
[2018-02-07] MEDS: morphine 2 MG/ML inj. syringe IV PRN ×3 (06:59→20:18)
[2018-02-07] MEDS ORDERED: NO HOME MEDS (07:07)
[2018-02-07] MEDS: docusate sod 100mg capsule PO SCH ×2 (08:00→20:00)
[2018-02-07] MEDS ORDERED: piperacillin/tazo 4.5gm/100ml 100 ML IV SCH (08:00)
[2018-02-07] MEDS: pantoprazole 40 MG vial IV SCH (08:16)
[2018-02-07] MEDS: vancomycin/NS 1 GM ADD-VANTAGE 250 ML IV SCH ×2 (09:29→22:58)
[2018-02-07 10:29] LABS: PARTIAL THROMBOPLASTIN TIME 23 SECONDS (22-32); PROTHROMBIN TIME 10.2 SECONDS (9.0-12.0)
[2018-02-07 11:35] LABS: HIV ANTIBODY 1&2 RAPID NON-REACTIVE (Neg)
[2018-02-07 15:17] LABS: BASOPHILS % (AUTO) 0.9 % (0-1); EOSINOPHILS # (AUTO) 0.1 X10'3 (0-0.9); EOSINOPHILS % (AUTO) 2.8 % (0-6); HEMATOCRIT 27.8 % (35.0-45.0); HEMOGLOBIN 8.7 g/dl (12.0-16.0); LYMPHOCYTES # (AUTO) 0.7 X10'3 (1.1-4.8); MEAN CORPUSCULAR HEMOGLOBIN 25.1 PG (27.0-31.0); MEAN CORPUSCULAR HGB CONC 31.4 % (33.0-36.5); MEAN CORPUSCULAR VOLUME 79.9 FL (78-98); MEAN PLATELET VOLUME 5.9 FL (7.4-10.4); MONOCYTES # (AUTO) 0.2 X10'3 (0-0.9); MONOCYTES % (AUTO) 8.1 % (2-12); NEUTROPHILS % (AUTO) 65.2 % (42-75); PLATELET COUNT 245 X10'3 (140-440); RED BLOOD COUNT 3.48 X10'6 (4.20-5.60)
[2018-02-07 16:15] LABS: ANISOCYTOSIS 2+; PLATELET ESTIMATE NORMAL; TOTAL CELLS COUNTED 100
[2018-02-07 16:16] LABS: HYPOCHROMASIA 1+
[2018-02-07] MEDS ORDERED: cefazolin/dext.iso 2gm/100ml 100 ML IV ONE (16:35)
[2018-02-07] MEDS ORDERED: cefazolin/dext.iso 2gm/100ml 100 ML IV SCH (16:39)
[2018-02-07] MEDS: ceFAZolin inj. 2,000 MG in dextrose 5%-water 50ml 50 ML IV SCH (17:50)
[2018-02-07] MEDS ORDERED: lidocaine 1.5% w/epinephrine 1:200,000 10ml vial MPF IJ ONE (18:50)
[2018-02-07] MEDS ORDERED: LIDOcaine 1% w/epiNEPHrine 1:200,000 30ml vial IJ ONE (19:05)
[2018-02-07] MEDS ORDERED: temazepam 15mg capsule PO PRN (21:00)
[2018-02-08] MEDS: ceFAZolin inj. 2,000 MG in dextrose 5%-water 50ml 50 ML IV SCH ×3 (01:27→16:13)
[2018-02-08] MEDS: morphine 2 MG/ML inj. syringe IV PRN (01:32)
[2018-02-08] MEDS: piperacillin/tazo 3.375gm/50ml 50 ML IV SCH ×3 (02:36→13:46)
[2018-02-08] MEDS: HYDROcodone/acetaminophen 10/325mg tab PO PRN ×5 (02:40→21:02)
[2018-02-08 05:44] LABS: BASOPHILS % (AUTO) 0.5 % (0-1); EOSINOPHILS # (AUTO) 0.1 X10'3 (0-0.9); HEMATOCRIT 26.1 % (35.0-45.0); HEMOGLOBIN 8.3 g/dl (12.0-16.0); MEAN CORPUSCULAR HEMOGLOBIN 25.5 PG (27.0-31.0); MEAN CORPUSCULAR HGB CONC 31.7 % (33.0-36.5); MEAN CORPUSCULAR VOLUME 80.4 FL (78-98); MEAN PLATELET VOLUME 6.3 FL (7.4-10.4); MONOCYTES # (AUTO) 0.3 X10'3 (0-0.9); NEUTROPHILS # (AUTO) 1.8 X10'3 (1.8-7.7); NEUTROPHILS % (AUTO) 55.5 % (42-75); PLATELET COUNT 245 X10'3 (140-440); RED BLOOD COUNT 3.25 X10'6 (4.20-5.60); RED CELL DISTRIBUTION WIDTH 18.7 % (11.5-14.5); WHITE BLOOD COUNT 3.2 X10'3 (4.5-11.0)
[2018-02-08 05:58] LABS: ALANINE AMINOTRANSFERASE 14 U/L (12-78); ALBUMIN 2.4 G/DL (3.4-5.0); ALBUMIN/GLOBULIN RATIO 0.6 (1.1-1.5); ALKALINE PHOSPHATASE 51 IU/L (46-116); ANION GAP 7 (8-16); ASPARTATE AMINO TRANSFERASE 17 U/L (10-37); BILIRUBIN,TOTAL 0.2 MG/DL (0.1-1.0); BLOOD UREA NITROGEN 12 MG/DL (7-18); BUN/CREATININE RATIO 14.3 (6.6-38.0); CHLORIDE 106 MMOL/L (99-107); CREATININE 0.84 MG/DL (0.40-0.90); GLUCOSE 78 MG/DL (70-104); POTASSIUM 3.9 MMOL/L (3.5-5.1); SODIUM 139 MMOL/L (135-145); TOTAL CARBON DIOXIDE 26.5 MMOL/L (24-32); TOTAL PROTEIN 6.1 G/DL (6.4-8.2); eGFR 73 ML/MIN
[2018-02-08] MEDS: normal saline 1000ml 1,000 ML IV SCH ×2 (06:01→13:45)
[2018-02-08 06:44] LABS: RPR Non Reactive (Non Reactive)
[2018-02-08 06:50] VITALS: BP 109/63
[2018-02-08] MEDS: pantoprazole 40 MG vial IV SCH (07:11)
[2018-02-08] MEDS: docusate sod 100mg capsule PO SCH ×2 (07:11→20:53)
[2018-02-08] MEDS: vancomycin/NS 1 GM ADD-VANTAGE 250 ML IV SCH ×2 (08:31→20:52)
[2018-02-08 10:00] VITALS: BP 89/47
[2018-02-08 10:32] VITALS: BP 89/47
[2018-02-08 11:09] VITALS: BP 112/76
[2018-02-08] MEDS: diphenhydrAMINE 25mg capsule PO PRN (16:29)
[2018-02-08 18:50] VITALS: BP 104/64
[2018-02-08] MEDS ORDERED: VANCOMYCIN LEVEL IV ONE (19:30)
[2018-02-09] VITALS: BP 107/70
[2018-02-09] MEDS: diphenhydrAMINE 25mg capsule PO PRN ×2 (01:33→18:49)
[2018-02-09] MEDS: HYDROcodone/acetaminophen 10/325mg tab PO PRN ×4 (01:34→18:53)
[2018-02-09] MEDS: normal saline 1000ml 1,000 ML IV SCH ×2 (02:00→14:52)
[2018-02-09 05:35] LABS: ALANINE AMINOTRANSFERASE 10 U/L (12-78); ALBUMIN 2.3 G/DL (3.4-5.0); ALBUMIN/GLOBULIN RATIO 0.6 (1.1-1.5); ALKALINE PHOSPHATASE 54 IU/L (46-116); ANION GAP 6 (8-16); ASPARTATE AMINO TRANSFERASE 15 U/L (10-37); BILIRUBIN,TOTAL 0.2 MG/DL (0.1-1.0); BLOOD UREA NITROGEN 10 MG/DL (7-18); BUN/CREATININE RATIO 12.7 (6.6-38.0); CALCIUM 8.2 MG/DL (8.5-10.1); CHLORIDE 107 MMOL/L (99-107); CREATININE 0.79 MG/DL (0.40-0.90); GLUCOSE 82 MG/DL (70-104); SODIUM 140 MMOL/L (135-145); TOTAL CARBON DIOXIDE 27.5 MMOL/L (24-32); TOTAL PROTEIN 5.9 G/DL (6.4-8.2); eGFR 79 ML/MIN
[2018-02-09 05:38] LABS: HEMATOCRIT 24.4 % (35.0-45.0); HEMOGLOBIN 8.1 g/dl (12.0-16.0); RED BLOOD COUNT 3.02 X10'6 (4.20-5.60); WHITE BLOOD COUNT 2.8 X10'3 (4.5-11.0)
[2018-02-09 05:39] LABS: BASOPHILS % (AUTO) 0.8 % (0-1); EOSINOPHILS # (AUTO) 0.1 X10'3 (0-0.9); EOSINOPHILS % (AUTO) 4.5 % (0-6); LYMPHOCYTES # (AUTO) 1.2 X10'3 (1.1-4.8); LYMPHOCYTES % (AUTO) 42.1 % (21-51); MEAN CORPUSCULAR HEMOGLOBIN 26.7 PG (27.0-31.0); MEAN CORPUSCULAR HGB CONC 33.1 % (33.0-36.5); MEAN CORPUSCULAR VOLUME 80.8 FL (78-98); MEAN PLATELET VOLUME 6.5 FL (7.4-10.4); MONOCYTES # (AUTO) 0.3 X10'3 (0-0.9); MONOCYTES % (AUTO) 9.7 % (2-12); NEUTROPHILS # (AUTO) 1.2 X10'3 (1.8-7.7); NEUTROPHILS % (AUTO) 42.9 % (42-75); PLATELET COUNT 218 X10'3 (140-440)
[2018-02-09 07:00] VITALS: BP 116/67
[2018-02-09 07:33] LABS: ANISOCYTOSIS 2+; PLATELET ESTIMATE NORMAL; TOTAL CELLS COUNTED 100
[2018-02-09] MEDS: pantoprazole 40mg Tablet.DR PO SCH (08:22)
[2018-02-09] MEDS: docusate sod 100mg capsule PO SCH ×2 (08:23→20:12)
[2018-02-09] MEDS: CefTRIAXone 2gm/D5W 50ml 50 ML IV SCH (08:27)
[2018-02-09] MEDS: vancomycin inj 1,250 MG in normal saline 250ml IV soln 250 ML IV SCH ×2 (09:19→20:13)
[2018-02-09] MEDS: morphine 2 MG/ML inj. syringe IV PRN ×2 (10:16→15:59)
[2018-02-09 11:00] VITALS: BP 112/64
[2018-02-09 18:00] VITALS: BP 130/67
[2018-02-10] VITALS: BP 117/74
[2018-02-10] MEDS: normal saline 1000ml 1,000 ML IV SCH ×3 (01:15→17:23)
[2018-02-10] MEDS: morphine 2 MG/ML inj. syringe IV PRN ×3 (01:19→15:11)
[2018-02-10] MEDS: HYDROcodone/acetaminophen 10/325mg tab PO PRN ×3 (04:06→17:24)
[2018-02-10] MEDS: diphenhydrAMINE 25mg capsule PO PRN (04:06)
[2018-02-10 05:28] LABS: BASOPHILS % (AUTO) 0.4 % (0-1); EOSINOPHILS # (AUTO) 0.2 X10'3 (0-0.9); EOSINOPHILS % (AUTO) 5.5 % (0-6); HEMATOCRIT 24.9 % (35.0-45.0); LYMPHOCYTES # (AUTO) 0.9 X10'3 (1.1-4.8); LYMPHOCYTES % (AUTO) 32.7 % (21-51); MEAN CORPUSCULAR HEMOGLOBIN 25.7 PG (27.0-31.0); MEAN CORPUSCULAR VOLUME 80.2 FL (78-98); MEAN PLATELET VOLUME 6.3 FL (7.4-10.4); MONOCYTES # (AUTO) 0.3 X10'3 (0-0.9); MONOCYTES % (AUTO) 9.3 % (2-12); NEUTROPHILS # (AUTO) 1.4 X10'3 (1.8-7.7); NEUTROPHILS % (AUTO) 52.1 % (42-75); PLATELET COUNT 219 X10'3 (140-440); RED BLOOD COUNT 3.11 X10'6 (4.20-5.60); RED CELL DISTRIBUTION WIDTH 18.9 % (11.5-14.5); WHITE BLOOD COUNT 2.8 X10'3 (4.5-11.0)
[2018-02-10 05:45] LABS: ALANINE AMINOTRANSFERASE 11 U/L (12-78); ALBUMIN 2.4 G/DL (3.4-5.0); ALBUMIN/GLOBULIN RATIO 0.6 (1.1-1.5); ALKALINE PHOSPHATASE 51 IU/L (46-116); ANION GAP 8 (8-16); ASPARTATE AMINO TRANSFERASE 18 U/L (10-37); BILIRUBIN,TOTAL 0.2 MG/DL (0.1-1.0); BLOOD UREA NITROGEN 8 MG/DL (7-18); BUN/CREATININE RATIO 12.1 (6.6-38.0); CALCIUM 7.9 MG/DL (8.5-10.1); CHLORIDE 106 MMOL/L (99-107); CREATININE 0.66 MG/DL (0.40-0.90); GLUCOSE 89 MG/DL (70-104); POTASSIUM 3.6 MMOL/L (3.5-5.1); SODIUM 140 MMOL/L (135-145); TOTAL CARBON DIOXIDE 26.3 MMOL/L (24-32); TOTAL PROTEIN 6.1 G/DL (6.4-8.2); eGFR > 90 ML/MIN
[2018-02-10 06:00] VITALS: BP 132/78
[2018-02-10 07:00] VITALS: BP 132/78
[2018-02-10] MEDS ORDERED: iohexol 300mg/ml 100ml inj. ONE (07:51)
[2018-02-10] MEDS: docusate sod 100mg capsule PO SCH (07:52)
[2018-02-10] MEDS: pantoprazole 40mg Tablet.DR PO SCH (07:52)
[2018-02-10] MEDS: CefTRIAXone 2gm/D5W 50ml 50 ML IV SCH (08:24)
[2018-02-10] MEDS: vancomycin inj 1,250 MG in normal saline 250ml IV soln 250 ML IV SCH (09:06)
[2018-02-10] MEDS ORDERED: bisacodyl 10mg suppository rectal RC STA (09:11)
[2018-02-10] MEDS ORDERED: polyethylene glycol 3350 17gm powd pack PO SCH (09:15)
[2018-02-10 09:24] LABS: ANISOCYTOSIS 2+; PLATELET ESTIMATE NORMAL; TOTAL CELLS COUNTED 100
[2018-02-10 09:26] LABS: HYPOCHROMASIA 1+; SCHISTOCYTES FEW
[2018-02-10 09:27] LABS: ELLIPTOCYTES FEW; TEAR DROP CELLS FEW
[2018-02-10 09:32] LABS: STOMATOCYTES FEW
[2018-02-10 11:30] VITALS: BP 134/78
[2018-02-10 11:43] VITALS: BP 136/72
[2018-02-10 18:00] VITALS: BP 134/82
[2018-02-10] MEDS ORDERED: DOXYCYCLINE 100MG CAPSULE PO SCH (19:15)
[2018-02-10] MEDS ORDERED: ketorolac trometh. 30mg/ml inj. IV SCH (20:00)
[2018-02-10] MEDS ORDERED: clindamycin 300mg/D5W 50mL 50 ML IV SCH (20:00)
[2018-02-10] MEDS ORDERED: VANCOMYCIN LEVEL IV ONE (20:30)
== END 2018-02-10 21:00 | disposition left against medical advice (07) | DRG 710 ==
LOC: ER 18:41 → ED HOLD 02-07 00:01 → ORTHO 4S 02-07 21:00 → SUR 3N 02-08 09:55
PROVIDERS: ADMIT Family Medicine; ATTEND Family Medicine
PROC: BW2F1ZZ Computerized Tomography (CT Scan) of Neck using Low Osmolar Contrast (ICD-10-PCS; 2018-02-06)
PROC: 0J950ZZ Drainage of Left Neck Subcutaneous Tissue and Fascia, Open Approach (ICD-10-PCS; principal; 2018-02-07)
PROC: 30233N1 Transfusion of Nonautologous Red Blood Cells into Peripheral Vein, Percutaneous Approach (ICD-10-PCS; 2018-02-07)
PROC: 02HV33Z Insertion of Infusion Device into Superior Vena Cava, Percutaneous Approach (ICD-10-PCS; 2018-02-07)
DX: A41.9 Sepsis, unspecified organism (principal); L02.11 Cutaneous abscess of neck; L03.221 Cellulitis of neck; D64.9 Anemia, unspecified; F15.10 Other stimulant abuse, uncomplicated; E86.1 Hypovolemia; Z53.21 Procedure and treatment not carried out due to patient leaving prior to being seen by health care provider; L02.01 Cutaneous abscess of face; M54.2 Cervicalgia; F32.9 Major depressive disorder, single episode, unspecified; Z88.8 Allergy status to other drugs, medicaments and biological substances; Z88.2 Allergy status to sulfonamides; Z87.440 Personal history of urinary (tract) infections; Z90.49 Acquired absence of other specified parts of digestive tract; Z90.710 Acquired absence of both cervix and uterus; Z71.51 Drug abuse counseling and surveillance of drug abuser; Z98.84 Bariatric surgery status
CPT/HCPCS: 36415; 36556; 70491; 71045; 74018; 76700; 80053; 80202; 83605; 83735; 83880; 84100; 85025; 85610; 85730; 86592; 86703; 86885; 86900; 86901; 86920; 87040; 87070; 93306; 93971; 96365; 96366; 96368; 99285; C9113; G0378; J0690; J0696; J2270; J2543; J3370; J3490; J7030; J7060; P9016; Q0163; Q9967; X5958

== ENCOUNTER 2018-03-30 09:33 | Emergency (ER) | payer MEDICAID ==
[~2018-03-30] VITALS: Ht 154.9 cm; Wt 60.4 kg
[~2018-03-30 09:33] MED LIST changes: -CEPH-571 PO; -CEPH500C5 PO; +NO HOME MEDS; -SERT50TA10
[2018-03-30 10:22] LABS: CLARITY,URINE SLIGHTLY CLOUDY (Clear); COLOR,URINE STRAW (Yellow); GLUCOSE, URINE NEGATIVE (Neg); KETONES,URINE NEGATIVE (Neg); LEUKOCYTE ESTERASE ,URINE SMALL (Neg); NITRITES, URINE NEGATIVE (Neg); OCCULT BLOOD,URINE NEGATIVE (Neg); PROTEIN,URINE NEGATIVE (Neg); UROBILINOGEN,URINE 0.2 E.U/dL (0.2-1.0)
[2018-03-30 10:23] LABS: URINE HCG NEGATIVE (NEG)
[2018-03-30] MEDS ORDERED: fentaNYL/PF 50MCG/1 ML 2ML syringe IV ONE (10:25)
[2018-03-30] MEDS ORDERED: normal saline 1000ml 1,000 ML IV ONE (10:25)
[2018-03-30] MEDS ORDERED: ondansetron/PF 4mg/2ml inj IV ONE ×2 (10:25→12:55)
[2018-03-30 10:27] LABS: UA COLLECTION TYPE CLN CATCH MIDSTREAM
[2018-03-30 10:28] LABS: BACTERIA,URINE 1+ /HPF (Neg); HYALINE CASTS 0-3 /LPF (NEGATIVE); MUCUS STRANDS FEW /LPF (Neg); SQUAMOUS EPITHELIAL CELL,UR FEW /LPF (FEW); YEAST FEW /HPF (NEGATIVE)
[2018-03-30 10:29] LABS: RBC,URINE 0-2 /HPF (0-2)
[2018-03-30 10:55] LABS: BASOPHILS % (AUTO) 1.4 % (0-1); EOSINOPHILS # (AUTO) 0.2 X10'3 (0-0.9); EOSINOPHILS % (AUTO) 5.3 % (0-6); HEMATOCRIT 29.6 % (35.0-45.0); HEMOGLOBIN 9.6 g/dl (12.0-16.0); LYMPHOCYTES # (AUTO) 1.2 X10'3 (1.1-4.8); LYMPHOCYTES % (AUTO) 42.1 % (21-51); MEAN CORPUSCULAR HEMOGLOBIN 25.1 PG (27.0-31.0); MEAN CORPUSCULAR HGB CONC 32.4 g/dL (33.0-36.5); MEAN CORPUSCULAR VOLUME 77.6 FL (78-98); MEAN PLATELET VOLUME 5.5 FL (7.4-10.4); MONOCYTES # (AUTO) 0.2 X10'3 (0-0.9); NEUTROPHILS # (AUTO) 1.3 X10'3 (1.8-7.7); NEUTROPHILS % (AUTO) 44.2 % (42-75); PLATELET COUNT 320 X10'3 (140-440); RED BLOOD COUNT 3.82 X10'6 (4.20-5.60); RED CELL DISTRIBUTION WIDTH 19.2 % (11.5-14.5); WHITE BLOOD COUNT 2.9 X10'3 (4.5-11.0)
[2018-03-30 11:06] LABS: PROTHROMBIN TIME 10.1 SECONDS (9.0-12.0)
[2018-03-30 11:09] LABS: ALANINE AMINOTRANSFERASE 25 U/L (12-78); ALBUMIN 3.7 G/DL (3.4-5.0); ALBUMIN/GLOBULIN RATIO 0.8 (1.1-1.5); ALKALINE PHOSPHATASE 68 IU/L (46-116); AMYLASE 102 U/L (25-115); ANION GAP 11 (8-16); ASPARTATE AMINO TRANSFERASE 22 U/L (10-37); BILIRUBIN,TOTAL 0.3 MG/DL (0.1-1.0); BLOOD UREA NITROGEN 9 MG/DL (7-18); BUN/CREATININE RATIO 9.9 (6.6-38.0); CALCIUM 8.4 MG/DL (8.5-10.1); CHLORIDE 106 MMOL/L (99-107); CREATININE 0.91 MG/DL (0.40-0.90); GLUCOSE 88 MG/DL (70-104); LIPASE 580 U/L (73-393); SODIUM 139 MMOL/L (135-145); TOTAL CARBON DIOXIDE 21.8 MMOL/L (24-32); TOTAL PROTEIN 8.1 G/DL (6.4-8.2); eGFR 67 ML/MIN
[2018-03-30] MEDS ORDERED: POLY119P2 PO (12:09)
[2018-03-30] MEDS ORDERED: BISA-155 PO (12:09)
[2018-03-30 12:12] LABS: TOTAL CELLS COUNTED 100
[2018-03-30 12:13] LABS: ANISOCYTOSIS 2+; MICROCYTOSIS 1+; PLATELET ESTIMATE NORMAL
[2018-03-30 12:29] LABS: URINE AMPHETAMINE SCREEN POSITIVE (Neg); URINE BARBITUATE SCREEN NEGATIVE (Neg); URINE BENZODIAZEPINES SCREEN NEGATIVE (Neg); URINE CANNABINOID SCREEN NEGATIVE (Neg); URINE COCAINE SCREEN NEGATIVE (Neg); URINE METHADONE SCREEN NEGATIVE (Neg); URINE OPIATE SCREEN NEGATIVE (Neg); URINE PHENCYCLIDINE SCREEN NEGATIVE (Neg)
[2018-03-30] MEDS ORDERED: CLIN150C8 PO (12:37)
[2018-03-30] MEDS ORDERED: morphine 4 MG/ML inj SYRINge IV ONE (12:55)
[2018-03-30 12:56] VITALS: BP 120/75
== END 2018-03-30 12:58 | disposition home or self-care (01) ==
LOC: ER 09:34
DX: K59.00 Constipation, unspecified (principal); F15.90 Other stimulant use, unspecified, uncomplicated; Z86.14 Personal history of Methicillin resistant Staphylococcus aureus infection; Z90.49 Acquired absence of other specified parts of digestive tract; Z98.0 Intestinal bypass and anastomosis status; Z90.710 Acquired absence of both cervix and uterus; Z98.890 Other specified postprocedural states; Z60.2 Problems related to living alone; Z56.0 Unemployment, unspecified; Z88.2 Allergy status to sulfonamides; Z88.6 Allergy status to analgesic agent; Z79.2 Long term (current) use of antibiotics; Z79.899 Other long term (current) drug therapy
CPT/HCPCS: 10060; 36415; 74176; 80053; 80305; 81001; 81025; 82150; 83690; 85025; 85610; 87088; 96374; 96375; 99284; J2405; J3010; J7030

== ENCOUNTER 2018-12-01 12:30 | Inpatient (IN) | payer MEDICAID ==
[~2018-12-01] VITALS: Ht 154.9 cm; Wt 132.0 kg
[2018-12-01] VITALS (7 sets, daily range): BP systolic 119–148; BP diastolic 63–86
[~2018-12-01 12:30] MED LIST changes: +BISA-155 PO; +CLIN150C8 PO; +POLY119P2 PO
[2018-12-01] MEDS ORDERED: ondansetron/PF 4mg/2ml inj IV ONE (14:00)
[2018-12-01] MEDS ORDERED: normal saline 1000ML IV soln IVB ONE (14:00)
--- NOTE | 2018-12-01 14:32 | NUR ---
TWO PIV ATTEMPTS AND ATTEMPT BY LAB, UNSUCCESSFUL
[2018-12-01] MEDS: morphine 4 MG/ML inj SYRINge IV PRN ×2 (15:28→18:59)
--- NOTE | 2018-12-01 15:40 | NUR ---
DR RYAN LATOYA LABS FROM RIGHT FEMORAL STICK DUE TO INABLILITY TO OBTAIN LABS
--- NOTE | 2018-12-01 15:41 | NUR ---
ice pack to right groin for 20 minutes
[2018-12-01 15:48] LABS: BASOPHILS % (AUTO) 1.4 % (0-1); EOSINOPHILS % (AUTO) 1.5 % (0-6); HEMOGLOBIN 7.1 g/dl (12.0-16.0); LYMPHOCYTES # (AUTO) 0.9 X10'3 (1.1-4.8); LYMPHOCYTES % (AUTO) 43.6 % (21-51); MEAN CORPUSCULAR HEMOGLOBIN 22.8 PG (27.0-31.0); MEAN CORPUSCULAR HGB CONC 30.7 g/dL (33.0-36.5); MEAN CORPUSCULAR VOLUME 74.3 FL (78-98); MEAN PLATELET VOLUME 6.5 FL (7.4-10.4); MONOCYTES # (AUTO) 0.2 X10'3 (0-0.9); MONOCYTES % (AUTO) 10.5 % (2-12); NEUTROPHILS # (AUTO) 0.9 X10'3 (1.8-7.7); PLATELET COUNT 282 X10'3 (140-440); RED BLOOD COUNT 3.09 X10'6 (4.20-5.60); RED CELL DISTRIBUTION WIDTH 19.9 % (11.5-14.5)
[2018-12-01 16:03] LABS: ALANINE AMINOTRANSFERASE 32 U/L (12-78); ALBUMIN 3.5 G/DL (3.4-5.0); ALBUMIN/GLOBULIN RATIO 1.1 (1.1-1.5); ALKALINE PHOSPHATASE 43 IU/L (46-116); ANION GAP 14 (8-16); ASPARTATE AMINO TRANSFERASE 32 U/L (10-37); BILIRUBIN,TOTAL 0.3 MG/DL (0.1-1.0); BLOOD UREA NITROGEN 17 MG/DL (7-18); BUN/CREATININE RATIO 16.8 (6.6-38.0); CALCIUM 8.4 MG/DL (8.5-10.1); CHLORIDE 105 MMOL/L (99-107); CREATININE 1.01 MG/DL (0.40-0.90); GLUCOSE 85 MG/DL (70-104); LIPASE 452 U/L (73-393); POTASSIUM 3.7 MMOL/L (3.5-5.1); SODIUM 141 MMOL/L (135-145); TOTAL CARBON DIOXIDE 22.4 MMOL/L (24-32); TOTAL PROTEIN 6.7 G/DL (6.4-8.2); eGFR 59 ML/MIN
[2018-12-01 16:19] LABS: ETHANOL < 0.010 GM/DL (0.0-0.010)
[2018-12-01 16:26] LABS: ANISOCYTOSIS 2+; MICROCYTOSIS 1+; PLATELET ESTIMATE NORMAL; TOTAL CELLS COUNTED 100
[2018-12-01 16:27] LABS: HYPOCHROMASIA 2+; POLYCHROMASIA FEW
[2018-12-01] MEDS ORDERED: ASPI-1140 PO (16:48)
[2018-12-01] MEDS ORDERED: ondansetron/PF 4mg/2ml inj IV PRN (17:05)
[2018-12-01] MEDS ORDERED: potassium Cl 20 mEq SR tablet PO PRN ×2 (17:05)
[2018-12-01] MEDS ORDERED: magnesium hydroxide 30ml (MOM) UD suspension PO PRN (17:05)
[2018-12-01] MEDS ORDERED: acetaminophen 325mg tablet PO PRN (17:05)
[2018-12-01] MEDS ORDERED: magnesium 2GM in 50ml NS 50 ML IV PRN (17:05)
[2018-12-01] MEDS ORDERED: magnesium Cl slow-release 64mg tablet PO PRN (17:05)
[2018-12-01] MEDS ORDERED: potassium CL 10mEq/100ml bag 100 ML IV PRN ×2 (17:05)
[2018-12-01] MEDS ORDERED: mag hydrox/Alum hydrox/simeth 30ml oral suspension PO PRN (17:05)
[2018-12-01] MEDS ORDERED: magnesium 4gm in 100ml NS 100 ML IV PRN (17:05)
[2018-12-01 17:40] LABS: URINE HCG NEGATIVE (NEG)
[2018-12-01 17:44] LABS: CLARITY,URINE CLEAR (Clear); GLUCOSE, URINE NEGATIVE (Neg); KETONES,URINE 15 mg/dl (Neg); LEUKOCYTE ESTERASE ,URINE NEGATIVE (Neg); NITRITES, URINE NEGATIVE (Neg); OCCULT BLOOD,URINE NEGATIVE (Neg); PH,URINE 5.5 (4.8-8.0); PROTEIN,URINE NEGATIVE (Neg); UROBILINOGEN,URINE 0.2 E.U/dL (0.2-1.0)
--- NOTE | 2018-12-01 17:48 | NUR ---
RELIEVING RN FOR BREAK, PT IS BEING EVALUATED BY MAINOR ANDERSON AT BEDSIDE
[2018-12-01 17:52] LABS: COLOR,URINE DARK YELLOW (Yellow); UA COLLECTION TYPE STRAIGHT CATH; URINE AMPHETAMINE SCREEN POSITIVE (Neg); URINE BARBITUATE SCREEN NEGATIVE (Neg); URINE BENZODIAZEPINES SCREEN NEGATIVE (Neg); URINE CANNABINOID SCREEN NEGATIVE (Neg); URINE COCAINE SCREEN NEGATIVE (Neg); URINE METHADONE SCREEN NEGATIVE (Neg); URINE OPIATE SCREEN POSITIVE (Neg); URINE PHENCYCLIDINE SCREEN NEGATIVE (Neg)
[2018-12-01 18:40] LABS: MEAN CORPUSCULAR HEMOGLOBIN 22.8 PG (27.0-31.0); MEAN CORPUSCULAR HGB CONC 30.4 g/dL (33.0-36.5); MEAN CORPUSCULAR VOLUME 74.9 FL (78-98); MEAN PLATELET VOLUME 6.2 FL (7.4-10.4); PLATELET COUNT 248 X10'3 (140-440); RED BLOOD COUNT 2.91 X10'6 (4.20-5.60); RED CELL DISTRIBUTION WIDTH 19.6 % (11.5-14.5); WHITE BLOOD COUNT 1.5 X10'3 (4.5-11.0)
[2018-12-01 18:49] LABS: HEMOGLOBIN 6.6 g/dl (12.0-16.0)
[2018-12-01 18:50] LABS: HEMATOCRIT 21.8 % (35.0-45.0)
--- NOTE | 2018-12-01 18:53 | NUR ---
WITH DR KARIMI FOR HEMOCULT TEST NEGATIVE
--- NOTE | 2018-12-01 19:48 | NUR ---
NO SIGN OF REACTION NOTED WITH BLOOD TRANSFUSION PATIENT PROVIDED PHONE TO CALL HER SISTER
[2018-12-01] MEDS ORDERED: haloperidol lactate 5mg/ml inj IM PRN (20:20)
[2018-12-01] MEDS ORDERED: haloperidol 5mg tablet PO PRN (20:20)
[2018-12-01] MEDS ORDERED: thiamine inj. 100 MG in normal saline 100ml IV soln 100 ML IV ONE (20:20)
[2018-12-01] MEDS ORDERED: LORazepam 2 mg/ml vial IV PRN (20:20)
[2018-12-01] MEDS ORDERED: LORazepam 1 MG tablet PO PRN (20:20)
[2018-12-01] MEDS: pantoprazole 40MG/NS 100ML BAG 100 ML IV SCH (20:36)
[2018-12-01 20:56] LABS: % IRON SATURATION 4 % (11-46); IRON 16 UG/DL (49-151); TOTAL IRON BINDING CAPACITY 404 UG/DL (259-388)
--- NOTE | 2018-12-01 21:14 | NUR ---
PHONE REPORT TO CHESTER HINES. PATIENT GOING ON [facility] WITH MONITOR TO ROOM 9370U
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
--- NOTE | 2018-12-01 22:00 | NUR ---
Called security to pickling operator patients screwdriver, 2 pocket knives, & tweezer. patients items can be picked up at security at discharge.
[2018-12-01] MEDS ORDERED: morphine 2 MG/ML inj. syringe IV PRN (22:40)
[2018-12-01] MEDS: morphine 2 MG/ML inj. syringe IV PRN (23:14)
[2018-12-02] VITALS (12 sets, daily range): BP systolic 107–140; BP diastolic 60–84
[2018-12-02 00:59] LABS: HEMATOCRIT 30.8 % (35.0-45.0); HEMOGLOBIN 9.9 g/dl (12.0-16.0); MEAN CORPUSCULAR HEMOGLOBIN 25.2 PG (27.0-31.0); MEAN CORPUSCULAR VOLUME 78.7 FL (78-98); MEAN PLATELET VOLUME 6.3 FL (7.4-10.4); PLATELET COUNT 220 X10'3 (140-440); RED BLOOD COUNT 3.92 X10'6 (4.20-5.60); RED CELL DISTRIBUTION WIDTH 19.9 % (11.5-14.5); WHITE BLOOD COUNT 1.5 X10'3 (4.5-11.0)
[2018-12-02] MEDS: pantoprazole 40MG/NS 100ML BAG 100 ML IV SCH ×2 (01:08→05:49)
[2018-12-02] MEDS: morphine 2 MG/ML inj. syringe IV PRN ×2 (03:48→19:16)
--- NOTE | 2018-12-02 06:27 | NUR ---
Gave report to Christiane BRIGGS.
[2018-12-02 06:41] LABS: BASOPHILS % (AUTO) 1.6 % (0-1); EOSINOPHILS % (AUTO) 1.9 % (0-6); HEMATOCRIT 31.1 % (35.0-45.0); HEMOGLOBIN 9.7 g/dl (12.0-16.0); LYMPHOCYTES # (AUTO) 0.8 X10'3 (1.1-4.8); LYMPHOCYTES % (AUTO) 54.1 % (21-51); MEAN CORPUSCULAR HEMOGLOBIN 24.9 PG (27.0-31.0); MEAN CORPUSCULAR HGB CONC 31.3 g/dL (33.0-36.5); MEAN CORPUSCULAR VOLUME 79.5 FL (78-98); MEAN PLATELET VOLUME 6.4 FL (7.4-10.4); MONOCYTES # (AUTO) 0.1 X10'3 (0-0.9); MONOCYTES % (AUTO) 9.4 % (2-12); NEUTROPHILS # (AUTO) 0.5 X10'3 (1.8-7.7); PLATELET COUNT 219 X10'3 (140-440); RED BLOOD COUNT 3.91 X10'6 (4.20-5.60); RED CELL DISTRIBUTION WIDTH 19.7 % (11.5-14.5); WHITE BLOOD COUNT 1.4 X10'3 (4.5-11.0)
--- NOTE | 2018-12-02 06:45 | NUR ---
Patient in room [facility] 4022. I have received report from Rosario BRIGGS and had the opportunity to ask questions and assume patient care.
[2018-12-02 06:49] LABS: ALANINE AMINOTRANSFERASE 39 U/L (12-78); ALBUMIN 2.9 G/DL (3.4-5.0); ALKALINE PHOSPHATASE 59 IU/L (46-116); AMYLASE 34 U/L (25-115); ANION GAP 9 (8-16); ASPARTATE AMINO TRANSFERASE 47 U/L (10-37); BILIRUBIN,TOTAL 0.8 MG/DL (0.1-1.0); BLOOD UREA NITROGEN 10 MG/DL (7-18); BUN/CREATININE RATIO 12.8 (6.6-38.0); CHLORIDE 109 MMOL/L (99-107); CREATININE 0.78 MG/DL (0.40-0.90); GLUCOSE 71 MG/DL (70-104); LIPASE 165 U/L (73-393); MAGNESIUM 1.5 MG/DL (1.5-2.4); PHOSPHORUS 3.7 MG/DL (2.3-4.5); POTASSIUM 3.5 MMOL/L (3.5-5.1); SODIUM 142 MMOL/L (135-145); TOTAL CARBON DIOXIDE 23.6 MMOL/L (24-32); TOTAL PROTEIN 5.8 G/DL (6.4-8.2); eGFR 80 ML/MIN
[2018-12-02 06:53] LABS: CALCIUM 7.8 MG/DL (8.5-10.1)
[2018-12-02] MEDS ORDERED: thiamine inj. 100 MG, folic acid inj. 2 MG in normal saline 100ml IV soln 100 ML IV SCH (08:00)
[2018-12-02] MEDS ORDERED: MVI, adult No.4 with vit. K 10 ML in dextrose 5% water 500ml 500 ML IV SCH ×2 (08:00)
[2018-12-02] MEDS: K and/or MAG REPLACEMENT MC SCH (08:00)
[2018-12-02] MEDS ORDERED: MIDAZolam 5mg/5ml vial ONE (08:51)
[2018-12-02] MEDS ORDERED: fentaNYL/PF 50MCG/1 ML 2ML syringe ONE (08:51)
[2018-12-02] MEDS ORDERED: LIDOcaine Viscous 15ml cup ONE (08:52)
[2018-12-02 08:55] LABS: PLATELET ESTIMATE NORMAL; TOTAL CELLS COUNTED 100
[2018-12-02 08:57] LABS: ANISOCYTOSIS 2+; HYPOCHROMASIA 2+; MICROCYTOSIS 1+; POLYCHROMASIA 1+
[2018-12-02] MEDS: iron sucrose complex injection 200 MG in normal saline 100ml IV soln 100 ML IV SCH (12:19)
[2018-12-02] MEDS: morphine 4 MG/ML inj SYRINge IV PRN (13:50)
--- NOTE | 2018-12-02 18:16 | NUR ---
Problems reprioritized. Patient report given, questions answered & plan of care reviewed with Rosario RN.
--- NOTE | 2018-12-02 18:20 | NUR ---
Received report from Christiane BRIGGS. Assumed care of patient.
[2018-12-02] MEDS: sucralfate 1 gm tablet PO SCH (19:13)
[2018-12-02 20:20] LABS: HEMOGLOBIN 9.8 g/dl (12.0-16.0); MEAN CORPUSCULAR HEMOGLOBIN 25.1 PG (27.0-31.0); MEAN CORPUSCULAR HGB CONC 31.7 g/dL (33.0-36.5); MEAN CORPUSCULAR VOLUME 79.2 FL (78-98); MEAN PLATELET VOLUME 6.5 FL (7.4-10.4); PLATELET COUNT 232 X10'3 (140-440); RED BLOOD COUNT 3.91 X10'6 (4.20-5.60); RED CELL DISTRIBUTION WIDTH 19.9 % (11.5-14.5)
[2018-12-03] MEDS: morphine 2 MG/ML inj. syringe IV PRN ×4 (00:17→12:36)
[2018-12-03 06:10] VITALS: BP 125/67
--- NOTE | 2018-12-03 06:10 | NUR ---
I have received patient report from Rosario BRIGGS
[2018-12-03 06:24] LABS: BASOPHILS % (AUTO) 1.2 % (0-1); EOSINOPHILS % (AUTO) 1.7 % (0-6); HEMATOCRIT 30.3 % (35.0-45.0); HEMOGLOBIN 9.8 g/dl (12.0-16.0); LYMPHOCYTES # (AUTO) 0.7 X10'3 (1.1-4.8); LYMPHOCYTES % (AUTO) 35.2 % (21-51); MEAN CORPUSCULAR HEMOGLOBIN 25.5 PG (27.0-31.0); MEAN CORPUSCULAR HGB CONC 32.4 g/dL (33.0-36.5); MEAN CORPUSCULAR VOLUME 78.8 FL (78-98); MEAN PLATELET VOLUME 6.4 FL (7.4-10.4); MONOCYTES # (AUTO) 0.2 X10'3 (0-0.9); MONOCYTES % (AUTO) 8.8 % (2-12); NEUTROPHILS # (AUTO) 1.1 X10'3 (1.8-7.7); NEUTROPHILS % (AUTO) 53.1 % (42-75); PLATELET COUNT 247 X10'3 (140-440); RED BLOOD COUNT 3.84 X10'6 (4.20-5.60); RED CELL DISTRIBUTION WIDTH 19.6 % (11.5-14.5)
[2018-12-03 06:35] LABS: ALANINE AMINOTRANSFERASE 30 U/L (12-78); ALBUMIN 2.8 G/DL (3.4-5.0); ALBUMIN/GLOBULIN RATIO 0.9 (1.1-1.5); ALKALINE PHOSPHATASE 52 IU/L (46-116); AMYLASE 54 U/L (25-115); ANION GAP 7 (8-16); ASPARTATE AMINO TRANSFERASE 24 U/L (10-37); BILIRUBIN,TOTAL 0.3 MG/DL (0.1-1.0); BLOOD UREA NITROGEN 10 MG/DL (7-18); BUN/CREATININE RATIO 14.1 (6.6-38.0); CALCIUM 7.9 MG/DL (8.5-10.1); CHLORIDE 109 MMOL/L (99-107); CREATININE 0.71 MG/DL (0.40-0.90); GLUCOSE 81 MG/DL (70-104); LIPASE 342 U/L (73-393); MAGNESIUM 1.7 MG/DL (1.5-2.4); PHOSPHORUS 3.5 MG/DL (2.3-4.5); POTASSIUM 3.6 MMOL/L (3.5-5.1); SODIUM 143 MMOL/L (135-145); TOTAL PROTEIN 5.8 G/DL (6.4-8.2); eGFR 89 ML/MIN
--- NOTE | 2018-12-03 06:39 | NUR ---
gave report to Mya BRIGGS.
[2018-12-03] MEDS: sucralfate 1 gm tablet PO SCH (07:46)
[2018-12-03] MEDS: K and/or MAG REPLACEMENT MC SCH (07:46)
[2018-12-03] MEDS: iron sucrose complex injection 200 MG in normal saline 100ml IV soln 100 ML IV SCH (07:48)
[2018-12-03] MEDS ORDERED: multivitamins, therapeutics tablet PO SCH (08:00)
[2018-12-03] MEDS ORDERED: folic acid 1mg tablet PO SCH (08:00)
[2018-12-03] MEDS ORDERED: thiamine 100mg tablet PO SCH (08:00)
[2018-12-03 08:31] LABS: TOTAL CELLS COUNTED 100
[2018-12-03 08:33] LABS: ANISOCYTOSIS 2+; MICROCYTOSIS 1+; PLATELET ESTIMATE NORMAL; POLYCHROMASIA 1+
[2018-12-03 08:34] LABS: HYPOCHROMASIA 1+
[2018-12-03 10:00] VITALS: BP 122/65
[2018-12-03] MEDS ORDERED: baclofen 10mg tablet PO PRN (13:15)
[2018-12-03] MEDS ORDERED: BAC10T PO (17:06)
[2018-12-03] MEDS ORDERED: SUCR1TAB34 PO (17:06)
--- NOTE | 2018-12-03 17:15 | NUR ---
Patient discharged and taught all discharge medication regimine. Patient taught to follow-up with Dr. Rivas for biopsy. Community service paperwork from social service worker provided.
[2018-12-08 17:47] LABS: OCCULT BLOOD STOOL NEGATIVE (Neg)
== END 2018-12-03 17:15 | disposition home or self-care (01) | DRG 241 ==
LOC: ER 12:31 → ED HOLD 17:26 → ORTHO 4S 21:30
PROVIDERS: ADMIT Family Medicine; ATTEND Family Medicine
PROC: 30233N1 Transfusion of Nonautologous Red Blood Cells into Peripheral Vein, Percutaneous Approach (ICD-10-PCS; principal; 2018-12-01)
PROC: 05HY33Z Insertion of Infusion Device into Upper Vein, Percutaneous Approach (ICD-10-PCS; 2018-12-01)
PROC: 0DBA8ZX Excision of Jejunum, Via Natural or Artificial Opening Endoscopic, Diagnostic (ICD-10-PCS; 2018-12-02)
PROC: 0DB68ZX Excision of Stomach, Via Natural or Artificial Opening Endoscopic, Diagnostic (ICD-10-PCS; 2018-12-02)
DX: K28.4 Chronic or unspecified gastrojejunal ulcer with hemorrhage (principal); K72.90 Hepatic failure, unspecified without coma; D50.0 Iron deficiency anemia secondary to blood loss (chronic); D72.819 Decreased white blood cell count, unspecified; F10.10 Alcohol abuse, uncomplicated; F15.10 Other stimulant abuse, uncomplicated; F32.9 Major depressive disorder, single episode, unspecified; M54.2 Cervicalgia; K29.20 Alcoholic gastritis without bleeding; Z83.3 Family history of diabetes mellitus; Z90.49 Acquired absence of other specified parts of digestive tract; Z90.710 Acquired absence of both cervix and uterus; Z98.84 Bariatric surgery status; Z88.2 Allergy status to sulfonamides; Z88.5 Allergy status to narcotic agent; Z71.51 Drug abuse counseling and surveillance of drug abuser; Z98.0 Intestinal bypass and anastomosis status
CPT/HCPCS: 36415; 36556; 43239; 74176; 80053; 80305; 80320; 81003; 81025; 82150; 82272; 83540; 83550; 83605; 83690; 83735; 84100; 85025; 85027; 85610; 86885; 86900; 86901; 86920; 87081; 96361; 96374; 99152; 99285; A4620; C9113; G0378; J1756; J2250; J2270; J2405; J3010; J3411; J3490; J7040; J7060; P9016

== ENCOUNTER 2018-12-12 13:23 | Emergency (ER) | payer MEDICAID ==
[~2018-12-12] VITALS: Ht 154.9 cm; Wt 58.0 kg
[~2018-12-12 13:23] MED LIST changes: +BAC10T PO; -BISA-155 PO; -CLIN150C8 PO; -NO HOME MEDS; -POLY119P2 PO; +SUCR1TAB34 PO
[2018-12-12 14:45] LABS: BASOPHILS # (AUTO) 0.1 X10'3 (0-0.2); BASOPHILS % (AUTO) 2.9 % (0-1); EOSINOPHILS # (AUTO) 0.1 X10'3 (0-0.9); EOSINOPHILS % (AUTO) 2.8 % (0-6); HEMATOCRIT 37.5 % (35.0-45.0); LYMPHOCYTES # (AUTO) 1.3 X10'3 (1.1-4.8); LYMPHOCYTES % (AUTO) 42.3 % (21-51); MEAN CORPUSCULAR HEMOGLOBIN 26.3 PG (27.0-31.0); MEAN CORPUSCULAR VOLUME 82.1 FL (78-98); MEAN PLATELET VOLUME 6.5 FL (7.4-10.4); MONOCYTES # (AUTO) 0.2 X10'3 (0-0.9); MONOCYTES % (AUTO) 7.4 % (2-12); NEUTROPHILS # (AUTO) 1.3 X10'3 (1.8-7.7); NEUTROPHILS % (AUTO) 44.6 % (42-75); PLATELET COUNT 245 X10'3 (140-440); RED BLOOD COUNT 4.56 X10'6 (4.20-5.60); RED CELL DISTRIBUTION WIDTH 24.3 % (11.5-14.5)
[2018-12-12 15:00] LABS: ALANINE AMINOTRANSFERASE 33 U/L (12-78); ALBUMIN 3.9 G/DL (3.4-5.0); ALKALINE PHOSPHATASE 57 IU/L (46-116); ANION GAP 11 (8-16); ASPARTATE AMINO TRANSFERASE 23 U/L (10-37); BILIRUBIN,TOTAL 0.3 MG/DL (0.1-1.0); BLOOD UREA NITROGEN 13 MG/DL (7-18); BUN/CREATININE RATIO 17.3 (6.6-38.0); CALCIUM 9.1 MG/DL (8.5-10.1); CHLORIDE 109 MMOL/L (99-107); CREATININE 0.75 MG/DL (0.40-0.90); GLUCOSE 76 MG/DL (70-104); POTASSIUM 3.6 MMOL/L (3.5-5.1); SODIUM 141 MMOL/L (135-145); TOTAL PROTEIN 7.7 G/DL (6.4-8.2); eGFR 83 ML/MIN
[2018-12-12 15:15] LABS: ANISOCYTOSIS 3+; HYPOCHROMASIA 1+; PLATELET ESTIMATE NORMAL; TOTAL CELLS COUNTED 100
[2018-12-12 15:20] LABS: CLARITY,URINE CLEAR (Clear); COLOR,URINE STRAW (Yellow); GLUCOSE, URINE NEGATIVE (Neg); KETONES,URINE NEGATIVE (Neg); LEUKOCYTE ESTERASE ,URINE NEGATIVE (Neg); NITRITES, URINE NEGATIVE (Neg); OCCULT BLOOD,URINE NEGATIVE (Neg); PROTEIN,URINE NEGATIVE (Neg); URINE HCG NEGATIVE (NEG); UROBILINOGEN,URINE 0.2 E.U/dL (0.2-1.0)
[2018-12-12 15:21] LABS: UA COLLECTION TYPE CLN CATCH MIDSTREAM
[2018-12-12] MEDS ORDERED: ondansetron/PF 4mg/2ml inj IV ONE (15:55)
[2018-12-12] MEDS ORDERED: morphine 4 MG/ML inj SYRINge IV ONE (15:55)
[2018-12-12 16:18] LABS: LIPASE 436 U/L (73-393)
--- NOTE | 2018-12-12 16:23 | NUR ---
PT TO XRAY VIA WHEELCHAIR
[2018-12-12] MEDS ORDERED: ONDA4TAB6 PO (16:37)
[2018-12-12] MEDS ORDERED: HYDR-4353 PO (16:37)
[2018-12-12 16:52] VITALS: BP 141/80
== END 2018-12-12 16:54 | disposition home or self-care (01) ==
LOC: ER 13:23
DX: K85.90 Acute pancreatitis without necrosis or infection, unspecified (principal); F32.9 Major depressive disorder, single episode, unspecified; F15.90 Other stimulant use, unspecified, uncomplicated; Z86.14 Personal history of Methicillin resistant Staphylococcus aureus infection; Z98.890 Other specified postprocedural states; Z90.710 Acquired absence of both cervix and uterus; Z90.49 Acquired absence of other specified parts of digestive tract; Z86.2 Personal history of diseases of the blood and blood-forming organs and certain disorders involving the immune mechanism; Z60.2 Problems related to living alone; Z56.0 Unemployment, unspecified; Z90.722 Acquired absence of ovaries, bilateral; Z88.6 Allergy status to analgesic agent; Z79.899 Other long term (current) drug therapy
CPT/HCPCS: 36415; 74018; 80053; 81003; 81025; 83690; 85025; 85610; 96374; 96375; 99284; J2270; J2405

== ENCOUNTER 2019-01-07 14:35 | Emergency (ER) | payer MEDICAID ==
[~2019-01-07] VITALS: Ht 154.9 cm; Wt 58.0 kg
[~2019-01-07 14:35] MED LIST changes: +ONDA4TAB6 PO
[2019-01-07 14:49] VITALS: BP 163/97
[2019-01-07] MEDS ORDERED: CLIN300C3 PO (16:36)
[2019-01-07] MEDS ORDERED: ACET-812 PO (16:36)
== END 2019-01-07 16:53 | disposition home or self-care (01) ==
LOC: ER 14:35
DX: T81.40XA Infection following a procedure, unspecified, initial encounter (principal); F32.9 Major depressive disorder, single episode, unspecified; F15.90 Other stimulant use, unspecified, uncomplicated; Z90.49 Acquired absence of other specified parts of digestive tract; Z98.890 Other specified postprocedural states; Z98.84 Bariatric surgery status; Z90.710 Acquired absence of both cervix and uterus; Z72.89 Other problems related to lifestyle; F15.20 Other stimulant dependence, uncomplicated; Z88.2 Allergy status to sulfonamides; Z91.09 Other allergy status, other than to drugs and biological substances; Z56.0 Unemployment, unspecified; Z88.6 Allergy status to analgesic agent
CPT/HCPCS: 99283

== ENCOUNTER 2019-04-01 21:59 | Emergency (ER) | payer MEDICAID ==
[~2019-04-01] VITALS: Ht 154.9 cm; Wt 56.8 kg
[2019-04-01 23:10] LABS: BASOPHILS % (AUTO) 0.7 % (0-1); EOSINOPHILS % (AUTO) 2.1 % (0-6); HEMATOCRIT 32.7 % (35.0-45.0); HEMOGLOBIN 11.3 g/dl (12.0-16.0); LYMPHOCYTES # (AUTO) 0.7 X10'3 (1.1-4.8); MEAN CORPUSCULAR HEMOGLOBIN 33.6 PG (27.0-31.0); MEAN CORPUSCULAR HGB CONC 34.7 g/dL (33.0-36.5); MEAN PLATELET VOLUME 5.9 FL (7.4-10.4); MONOCYTES # (AUTO) 0.2 X10'3 (0-0.9); MONOCYTES % (AUTO) 7.3 % (2-12); NEUTROPHILS # (AUTO) 1.4 X10'3 (1.8-7.7); NEUTROPHILS % (AUTO) 60.9 % (42-75); PLATELET COUNT 181 X10'3 (140-440); RED BLOOD COUNT 3.38 X10'6 (4.20-5.60); RED CELL DISTRIBUTION WIDTH 12.2 % (11.5-14.5); WHITE BLOOD COUNT 2.3 X10'3 (4.5-11.0)
[2019-04-01] MEDS ORDERED: normal saline 1000ml 1,000 ML IV ONE (23:15)
[2019-04-01] MEDS ORDERED: HYDROcodone/acetaminophen 5mg/325mg tablet PO ONE (23:15)
[2019-04-01] MEDS ORDERED: ondansetron 4mg rapidly disintigrating tab PO ONE (23:15)
[2019-04-01 23:19] LABS: ALANINE AMINOTRANSFERASE 25 U/L (12-78); ALBUMIN 3.2 G/DL (3.4-5.0); ALBUMIN/GLOBULIN RATIO 0.9 (1.1-1.5); ALKALINE PHOSPHATASE 55 IU/L (46-116); ANION GAP 9 (8-16); ASPARTATE AMINO TRANSFERASE 24 U/L (10-37); BILIRUBIN,TOTAL 0.3 MG/DL (0.1-1.0); BLOOD UREA NITROGEN 10 MG/DL (7-18); BUN/CREATININE RATIO 11.6 (6.6-38.0); CALCIUM 8.4 MG/DL (8.5-10.1); CHLORIDE 107 MMOL/L (99-107); CREATININE 0.86 MG/DL (0.40-0.90); GLUCOSE 85 MG/DL (70-104); LIPASE 165 U/L (73-393); POTASSIUM 3.8 MMOL/L (3.5-5.1); SODIUM 140 MMOL/L (135-145); TOTAL CARBON DIOXIDE 24.1 MMOL/L (24-32); TOTAL PROTEIN 6.7 G/DL (6.4-8.2); eGFR 71 ML/MIN
[2019-04-01 23:45] LABS: ANISOCYTOSIS 1+; PLATELET ESTIMATE NORMAL; TOTAL CELLS COUNTED 100
[2019-04-02] MEDS ORDERED: POLY17PO10 PO (00:57)
[2019-04-02] MEDS ORDERED: ONDA4TAB6 PO (00:58)
[2019-04-02 01:11] LABS: CLARITY,URINE SLIGHTLY CLOUDY (Clear); COLOR,URINE YELLOW (Yellow); GLUCOSE, URINE NEGATIVE (Neg); KETONES,URINE TRACE mg/dl (Neg); LEUKOCYTE ESTERASE ,URINE TRACE (Neg); NITRITES, URINE POSITIVE (Neg); OCCULT BLOOD,URINE TRACE-INTACT (Neg); PROTEIN,URINE TRACE mg/dl (Neg)
[2019-04-02 01:12] LABS: URINE HCG NEGATIVE (NEG)
[2019-04-02 01:20] LABS: UA COLLECTION TYPE CLN CATCH MIDSTREAM
[2019-04-02 01:21] LABS: BACTERIA,URINE 2+ /HPF (Neg); RBC,URINE 0-2 /HPF (0-2); SQUAMOUS EPITHELIAL CELL,UR FEW /LPF (FEW)
[2019-04-02] MEDS ORDERED: CefTRIAXone 2gm/D5W 50ml 50 ML IV ONE (01:25)
[2019-04-02] MEDS ORDERED: CEPH250T PO (01:27)
[2019-04-02 02:00] VITALS: BP 140/80
== END 2019-04-02 02:29 | disposition home or self-care (01) ==
LOC: ER 22:01
DX: K59.00 Constipation, unspecified (principal); N39.0 Urinary tract infection, site not specified; R42 Dizziness and giddiness; R11.0 Nausea; R10.31 Right lower quadrant pain; R10.32 Left lower quadrant pain; F15.90 Other stimulant use, unspecified, uncomplicated; Z90.49 Acquired absence of other specified parts of digestive tract; Z98.890 Other specified postprocedural states; Z56.0 Unemployment, unspecified; Z98.84 Bariatric surgery status; Z88.6 Allergy status to analgesic agent; Z88.2 Allergy status to sulfonamides; Z79.899 Other long term (current) drug therapy
CPT/HCPCS: 36415; 74176; 80053; 81001; 81025; 83690; 85025; 87077; 87088; 87186; 96361; 96365; 99284; J0696; J7030

== ENCOUNTER 2019-07-28 20:57 | Emergency (ER) | payer MEDICAID ==
[~2019-07-28] VITALS: Ht 154.9 cm; Wt 56.8 kg
[2019-07-28 21:42] LABS: URINE HCG NEGATIVE (NEG)
[2019-07-28 21:43] LABS: WHITE BLOOD COUNT 3.8 X10'3 (4.5-11.0)
[2019-07-28 21:44] LABS: BASOPHILS # (AUTO) 0.1 X10'3 (0-0.2); BASOPHILS % (AUTO) 1.8 % (0-1); EOSINOPHILS # (AUTO) 0.3 X10'3 (0-0.9); EOSINOPHILS % (AUTO) 8.2 % (0-6); HEMATOCRIT 35.2 % (35.0-45.0); HEMOGLOBIN 11.5 g/dl (12.0-16.0); LYMPHOCYTES # (AUTO) 1.3 X10'3 (1.1-4.8); LYMPHOCYTES % (AUTO) 33.9 % (21-51); MEAN CORPUSCULAR HEMOGLOBIN 30.2 PG (27.0-31.0); MEAN CORPUSCULAR HGB CONC 32.6 g/dL (33.0-36.5); MEAN CORPUSCULAR VOLUME 92.7 FL (78-98); MEAN PLATELET VOLUME 5.9 FL (7.4-10.4); MONOCYTES # (AUTO) 0.3 X10'3 (0-0.9); MONOCYTES % (AUTO) 8.2 % (2-12); NEUTROPHILS # (AUTO) 1.8 X10'3 (1.8-7.7); NEUTROPHILS % (AUTO) 47.9 % (42-75); PLATELET COUNT 304 X10'3 (140-440); RED CELL DISTRIBUTION WIDTH 14.1 % (11.5-14.5)
[2019-07-28 21:44] LABS: CLARITY,URINE CLEAR (Clear); COLOR,URINE YELLOW (Yellow); GLUCOSE, URINE NEGATIVE (Neg); KETONES,URINE TRACE mg/dl (Neg); LEUKOCYTE ESTERASE ,URINE NEGATIVE (Neg); NITRITES, URINE NEGATIVE (Neg); OCCULT BLOOD,URINE NEGATIVE (Neg); PROTEIN,URINE NEGATIVE (Neg); UROBILINOGEN,URINE 0.2 E.U/dL (0.2-1.0)
[2019-07-28 21:55] LABS: ALANINE AMINOTRANSFERASE 21 U/L (12-78); ALBUMIN 3.5 G/DL (3.4-5.0); ALBUMIN/GLOBULIN RATIO 0.9 (1.1-1.5); ALKALINE PHOSPHATASE 59 IU/L (46-116); ANION GAP 12 (8-16); ASPARTATE AMINO TRANSFERASE 27 U/L (10-37); BILIRUBIN,TOTAL 0.1 MG/DL (0.1-1.0); BLOOD UREA NITROGEN 19 MG/DL (7-18); CALCIUM 8.5 MG/DL (8.5-10.1); CHLORIDE 110 MMOL/L (99-107); CREATININE 1.12 MG/DL (0.40-0.90); GLUCOSE 56 MG/DL (70-104); LIPASE 627 U/L (73-393); POTASSIUM 3.5 MMOL/L (3.5-5.1); SODIUM 144 MMOL/L (135-145); TOTAL CARBON DIOXIDE 21.7 MMOL/L (24-32); TOTAL PROTEIN 7.2 G/DL (6.4-8.2); eGFR 52 ML/MIN
[2019-07-28 22:02] LABS: UA COLLECTION TYPE CLN CATCH MIDSTREAM
--- NOTE | 2019-07-28 22:37 | NUR ---
Spoke with provider re pt's symptomology and lab values. N.O. received for NS 1000mL bolus now.
[2019-07-28] MEDS ORDERED: normal saline 1000ml 1,000 ML IV ONE (22:40)
[2019-07-28] MEDS ORDERED: orphenadrine citrate 60mg/2ml inj. IM ONE (22:45)
[2019-07-28] MEDS ORDERED: acetaminophen 325mg tablet PO ONE (23:55)
[2019-07-28] MEDS ORDERED: CYCL-1 PO (23:57)
[2019-07-29 00:13] VITALS: BP 115/69
== END 2019-07-29 00:18 | disposition home or self-care (01) ==
LOC: ER 20:57
DX: R53.1 Weakness (principal); E86.0 Dehydration; M54.2 Cervicalgia; F32.9 Major depressive disorder, single episode, unspecified; F15.90 Other stimulant use, unspecified, uncomplicated; Z90.49 Acquired absence of other specified parts of digestive tract; Z98.0 Intestinal bypass and anastomosis status; Z90.710 Acquired absence of both cervix and uterus; Z98.890 Other specified postprocedural states; Z86.14 Personal history of Methicillin resistant Staphylococcus aureus infection; Z60.2 Problems related to living alone; Z56.0 Unemployment, unspecified; Z88.6 Allergy status to analgesic agent; Z88.2 Allergy status to sulfonamides; Z79.899 Other long term (current) drug therapy
CPT/HCPCS: 36415; 80053; 81003; 81025; 83690; 85025; 86885; 86900; 86901; 96372; 99284; J2360; J7030

== ENCOUNTER 2019-12-24 19:55 | Emergency (ER) | payer MEDICAID, OTHER ==
[~2019-12-24] VITALS: Ht 154.9 cm; Wt 54.5 kg
[~2019-12-24 19:55] MED LIST changes: +CYCL-1 PO
--- NOTE | 2019-12-24 19:57 | NUR ---
XRAY AT BEDSIDE
--- NOTE | 2019-12-24 20:45 | NUR ---
PT DIFFICULT STICK FOR IV START AND BLOOD DRAW 2 DANIELLENET RN INCLUDING CHARGE ATTEMPTED TO DRAW AND START IV WITHOUT SUCESS . PT VERY SENSITIVE. ASKING FOR A BREAK IN POKES
--- NOTE | 2019-12-24 20:51 | NUR ---
DIFFERENT BILLING TYPIST AT BEDSIDE TO DRAW PT WITH MARGY
[2019-12-24 23:25] LABS: BASOPHILS % (AUTO) 0.9 % (0-1); EOSINOPHILS # (AUTO) 0.1 X10'3 (0-0.9); HEMATOCRIT 30.6 % (35.0-45.0); HEMOGLOBIN 9.9 g/dl (12.0-16.0); LYMPHOCYTES # (AUTO) 1.4 X10'3 (1.1-4.8); LYMPHOCYTES % (AUTO) 31.8 % (21-51); MEAN CORPUSCULAR HEMOGLOBIN 27.6 PG (27.0-31.0); MEAN CORPUSCULAR HGB CONC 32.3 g/dL (33.0-36.5); MEAN CORPUSCULAR VOLUME 85.3 FL (78-98); MEAN PLATELET VOLUME 6.3 FL (7.4-10.4); MONOCYTES # (AUTO) 0.3 X10'3 (0-0.9); MONOCYTES % (AUTO) 7.1 % (2-12); NEUTROPHILS # (AUTO) 2.4 X10'3 (1.8-7.7); NEUTROPHILS % (AUTO) 57.2 % (42-75); PLATELET COUNT 341 X10'3 (140-440); RED BLOOD COUNT 3.59 X10'6 (4.20-5.60); RED CELL DISTRIBUTION WIDTH 16.7 % (11.5-14.5); WHITE BLOOD COUNT 4.2 X10'3 (4.5-11.0)
[2019-12-24 23:34] LABS: ALANINE AMINOTRANSFERASE 25 U/L (12-78); ALBUMIN 3.3 G/DL (3.4-5.0); ALBUMIN/GLOBULIN RATIO 0.9 (1.1-1.5); ALKALINE PHOSPHATASE 47 IU/L (46-116); ANION GAP 11 (8-16); ASPARTATE AMINO TRANSFERASE 24 U/L (10-37); BILIRUBIN,TOTAL 0.3 MG/DL (0.1-1.0); BLOOD UREA NITROGEN 19 MG/DL (7-18); BUN/CREATININE RATIO 21.8 (6.6-38.0); CALCIUM 8.7 MG/DL (8.5-10.1); CHLORIDE 104 MMOL/L (99-107); CREATININE 0.87 MG/DL (0.40-0.90); GLUCOSE 92 MG/DL (70-104); POTASSIUM 3.8 MMOL/L (3.5-5.1); SODIUM 140 MMOL/L (135-145); TOTAL CARBON DIOXIDE 24.8 MMOL/L (24-32); eGFR 70 ML/MIN
[2019-12-25] MEDS ORDERED: acetaminophen 325mg tablet PO ONE (00:20)
--- NOTE | 2019-12-25 01:23 | NUR ---
LAB AT BEDSIDE TO DRAW 3 HR TROPONIN
--- NOTE | 2019-12-25 01:55 | NUR ---
Rigo mcghee in ED - 12/25/19 at 0156 by GETON REPEAT TROP <0.07
--- NOTE | 2019-12-25 01:55 | NUR ---
REPEAT TROP LESS THAN <0.04
[2019-12-25 02:22] VITALS: BP 112/78
== END 2019-12-25 02:24 ==
LOC: EEVIPCON 19:56 → ER 19:56
DX: R07.89 Other chest pain (principal); R42 Dizziness and giddiness; E78.00 Pure hypercholesterolemia, unspecified; I10 Essential (primary) hypertension; F32.9 Major depressive disorder, single episode, unspecified; F15.90 Other stimulant use, unspecified, uncomplicated; Z86.14 Personal history of Methicillin resistant Staphylococcus aureus infection; Z90.49 Acquired absence of other specified parts of digestive tract; Z90.710 Acquired absence of both cervix and uterus; Z98.61 Coronary angioplasty status; Z98.890 Other specified postprocedural states; Z72.89 Other problems related to lifestyle; Z60.2 Problems related to living alone; Z56.0 Unemployment, unspecified; Z88.6 Allergy status to analgesic agent; Z88.2 Allergy status to sulfonamides; Z79.899 Other long term (current) drug therapy
CPT/HCPCS: 36415; 71045; 80053; 83880; 84484; 85025; 93005; 99285